=== PATIENT | female | born 2000 | race Hispanic/Latino ===

== ENCOUNTER 2025-06-23 14:40 | Emergency (ER) | payer OTHER ==
--- OUTSIDE RECORDS SUMMARY | 2025-06-23 14:50 | XMS REPORT | Continuity of Care Document ---
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 SARS-COV-2 COVID-19 PFIZER VACCINE 2021-01-04 00:00:00 Completed [facility] SARS-COV-2 COVID-19 PFIZER VACCINE 2021-01-04 00:00:00 Completed [facility] SARS-COV-2 COVID-19 PFIZER VACCINE 2021-01-04 00:00:00 Completed [facility] SARS-COV-2 COVID-19 PFIZER VACCINE 2021-01-04 00:00:00 Completed [facility] SARS-COV-2 COVID-19 PFIZER VACCINE 2021-01-04 00:00:00 Completed [facility] SARS-COV-2 COVID-19 PFIZER VACCINE 2021-01-04 00:00:00 Completed [facility] SARS-COV-2 COVID-19 PFIZER VACCINE 2021-01-04 00:00:00 Completed [facility] SARS-COV-2 COVID-19 PFIZER VACCINE 2021-01-04 00:00:00 Completed [facility] SARS-COV-2 COVID-19 PFIZER VACCINE 2021-01-04 00:00:00 Completed [facility] SARS-COV-2 COVID-19 PFIZER VACCINE 2021-01-04 00:00:00 Completed [facility] SARS-COV-2 COVID-19 PFIZER VACCINE 2021-01-04 00:00:00 Completed [facility] SARS-COV-2 COVID-19 PFIZER VACCINE 2021-01-04 00:00:00 Completed [facility] SARS-COV-2 COVID-19 PFIZER VACCINE 2021-01-04 00:00:00 Completed [facility] SARS-COV-2 COVID-19 PFIZER VACCINE 2021-01-04 00:00:00 Completed [facility] SARS-COV-2 COVID-19 PFIZER VACCINE 2021-01-04 00:00:00 Completed [facility] SARS-COV-2 COVID-19 PFIZER VACCINE 2021-01-04 00:00:00 Completed [facility] SARS-COV-2 COVID-19 PFIZER VACCINE 2021-01-04 00:00:00 Completed [facility] SARS-COV-2 COVID-19 PFIZER VACCINE 2021-01-04 00:00:00 Completed [facility] SARS-COV-2 COVID-19 PFIZER VACCINE 2021-01-04 00:00:00 Completed [facility] SARS-COV-2 COVID-19 PFIZER VACCINE 2021-01-04 00:00:00 Completed [facility] SARS-COV-2 COVID-19 PFIZER VACCINE 2021-01-04 00:00:00 Completed [facility] SARS-COV-2 COVID-19 PFIZER VACCINE 2021-01-04 00:00:00 Completed [facility] SARS-COV-2 COVID-19 PFIZER VACCINE 2021-01-04 00:00:00 Completed [facility] SARS-COV-2 COVID-19 PFIZER VACCINE 2021-01-04 00:00:00 Completed [facility] TD, NOS 2016-04-21 00:00:00 Completed [facility] TD, NOS 2016-04-21 00:00:00 Completed [facility] TD, NOS 2016-04-21 00:00:00 Completed [facility] TD, NOS 2016-04-21 00:00:00 Completed [facility] TD, NOS 2016-04-21 00:00:00 Completed [facility] TD, NOS 2016-04-21 00:00:00 Completed [facility] TD, NOS 2016-04-21 00:00:00 Completed [facility] TD, NOS 2016-04-21 00:00:00 Completed [facility] TD, NOS 2016-04-21 00:00:00 Completed [facility] TD, NOS 2016-04-21 00:00:00 Completed [facility] TD, NOS 2016-04-21 00:00:00 Completed [facility] TD, NOS 2016-04-21 00:00:00 Completed [facility] TD, NOS 2016-04-21 00:00:00 Completed [facility] TD, NOS 2016-04-21 00:00:00 Completed [facility] TD, NOS 2016-04-21 00:00:00 Completed [facility] TD, NOS 2016-04-21 00:00:00 Completed [facility] TD, NOS 2016-04-21 00:00:00 Completed [facility] TD, NOS 2016-04-21 00:00:00 Completed [facility] TD, NOS 2016-04-21 00:00:00 Completed [facility] TD, NOS 2016-04-21 00:00:00 Completed [facility] TD, NOS 2016-04-21 00:00:00 Completed [facility] TD, NOS 2016-04-21 00:00:00 Completed [facility] TD, NOS 2016-04-21 00:00:00 Completed [facility] TD, NOS 2016-04-21 00:00:00 Completed [facility] TD, NOS 2016-04-21 00:00:00 Completed [facility] TD, NOS 2016-04-21 00:00:00 Completed [facility] TD, NOS 2016-04-21 00:00:00 Completed [facility] TD, NOS 2016-04-21 00:00:00 Completed [facility] TD, NOS 2016-04-21 00:00:00 Completed [facility] TD, NOS 2016-04-21 00:00:00 Completed [facility] TD, NOS Unknown Completed [facility] SARS-COV-2 COVID-19 PFIZER VACCINE Unknown Completed [facility] TDAP Unknown Completed [facility] TD, NOS Unknown Completed [facility] SARS-COV-2 COVID-19 PFIZER VACCINE Unknown Completed [facility] TDAP Unknown Completed [facility] TD, NOS Unknown Completed [facility] SARS-COV-2 COVID-19 PFIZER VACCINE Unknown Completed [facility] TDAP Unknown Completed [facility] TD, NOS Unknown Completed [facility] SARS-COV-2 COVID-19 PFIZER VACCINE Unknown Completed [facility] TDAP Unknown Completed [facility] TD, NOS Unknown Completed [facility] SARS-COV-2 COVID-19 PFIZER VACCINE Unknown Completed [facility] TDAP Unknown Completed [facility] TD, NOS Unknown Completed [facility] SARS-COV-2 COVID-19 PFIZER VACCINE Unknown Completed [facility] TDAP Unknown Completed [facility] TD, NOS Unknown Completed [facility] SARS-COV-2 COVID-19 PFIZER VACCINE Unknown Completed [facility] TDAP Unknown Completed [facility] TD, NOS Unknown Completed [facility] SARS-COV-2 COVID-19 PFIZER VACCINE Unknown Completed [facility] TDAP Unknown Completed [facility] TD, NOS Unknown Completed [facility] SARS-COV-2 COVID-19 PFIZER VACCINE Unknown Completed [facility] TDAP Unknown Completed [facility] TD, NOS Unknown Completed [facility] SARS-COV-2 COVID-19 PFIZER VACCINE Unknown Completed [facility] TDAP Unknown Completed [facility] TD, NOS Unknown Completed [facility] SARS-COV-2 COVID-19 PFIZER VACCINE Unknown Completed [facility] TDAP Unknown Completed [facility] TD, NOS Unknown Completed [facility] SARS-COV-2 COVID-19 PFIZER VACCINE Unknown Completed [facility] TDAP Unknown Completed [facility] TD, NOS Unknown Completed [facility] SARS-COV-2 COVID-19 PFIZER VACCINE Unknown Completed [facility] TDAP Unknown Completed [facility] TD, NOS Unknown Completed [facility] SARS-COV-2 COVID-19 PFIZER VACCINE Unknown Completed [facility] TDAP Unknown Completed [facility] TD, NOS Unknown Completed [facility] SARS-COV-2 COVID-19 PFIZER VACCINE Unknown Completed [facility] TDAP Unknown Completed [facility] TD, NOS Unknown Completed [facility] SARS-COV-2 COVID-19 PFIZER VACCINE Unknown Completed [facility] TDAP Unknown Completed [facility] TD, NOS Unknown Completed [facility] SARS-COV-2 COVID-19 PFIZER VACCINE Unknown Completed [facility] TDAP Unknown Completed [facility] TD, NOS Unknown Completed [facility] SARS-COV-2 COVID-19 PFIZER VACCINE Unknown Completed [facility] TDAP Unknown Completed [facility] TD, NOS Unknown Completed [facility] SARS-COV-2 COVID-19 PFIZER VACCINE Unknown Completed [facility] TDAP Unknown Completed [facility] TD, NOS Unknown Completed [facility] SARS-COV-2 COVID-19 PFIZER VACCINE Unknown Completed [facility] TDAP Unknown Completed [facility] TD, NOS Unknown Completed [facility] SARS-COV-2 COVID-19 PFIZER VACCINE Unknown Completed [facility] TDAP Unknown Completed [facility] TD, NOS Unknown Completed [facility] SARS-COV-2 COVID-19 PFIZER VACCINE Unknown Completed [facility] TDAP Unknown Completed [facility] TD, NOS Unknown Completed [facility] SARS-COV-2 COVID-19 PFIZER VACCINE Unknown Completed [facility] TDAP Unknown Completed [facility] TD, NOS Unknown Completed [facility] SARS-COV-2 COVID-19 PFIZER VACCINE Unknown Completed [facility] TDAP Unknown Completed [facility] TD, NOS Unknown Completed [facility] SARS-COV-2 COVID-19 PFIZER VACCINE Unknown Completed [facility] TDAP Unknown Completed [facility] TD, NOS Unknown Completed [facility] SARS-COV-2 COVID-19 PFIZER VACCINE Unknown Completed [facility] TDAP Unknown Completed [facility] TD, NOS Unknown Completed [facility] SARS-COV-2 COVID-19 PFIZER VACCINE Unknown Completed [facility] TDAP Unknown Completed [facility] TD, NOS Unknown Completed [facility] SARS-COV-2 COVID-19 PFIZER VACCINE Unknown Completed [facility] TDAP Unknown Completed [facility] TD, NOS Unknown Completed [facility] SARS-COV-2 COVID-19 PFIZER VACCINE Unknown Completed [facility] TDAP Unknown Completed [facility] TD, NOS Unknown Completed [facility] SARS-COV-2 COVID-19 PFIZER VACCINE Unknown Completed [facility] TDAP Unknown Completed [facility] TD, NOS Unknown Completed [facility] SARS-COV-2 COVID-19 PFIZER VACCINE Unknown Completed [facility] TDAP Unknown Completed [facility] TD, NOS Unknown Completed [facility] SARS-COV-2 COVID-19 PFIZER VACCINE Unknown Completed [facility] TDAP Unknown Completed [facility] Vital Signs Vital Name Observation Time Observation Value Comments S ource Systolic blood pressure 2025-02-20 18:01:00 109 mm[Hg] [facility] Diastolic blood pressure 2025-02-20 18:01:00 66 mm[Hg] [facility] Heart rate 2025-02-20 18:01:00 74 /min [facility] Body temperature 2025-02-20 18:01:00 35.94 [facility] Body height 2025-02-20 18:01:00 144.8 cm [facility] Body weight 2025-02-20 18:01:00 43.364 kg [facility] BMI 2025-02-20 18:01:00 20.69 kg/m2 [facility] Systolic blood pressure 2025-01-19 16:10:00 110 mm[Hg] [facility] Diastolic blood pressure 2025-01-19 16:10:00 71 mm[Hg] [facility] Heart rate 2025-01-19 16:10:00 71 /min [facility] Body temperature 2025-01-19 16:10:00 36.78 [facility] Respiratory rate 2025-01-19 16:10:00 18 /min [facility] Body height 2025-01-19 16:10:00 144.8 cm [facility] Body weight 2025-01-19 16:10:00 43.681 kg [facility] BMI 2025-01-19 16:10:00 20.84 kg/m2 [facility] Oxygen saturation in Arterial blood by Pulse oximetry 2025-01-19 16:10:00 98 /min [facility] Systolic blood pressure 2025-01-01 20:02:00 110 mm[Hg] [facility] Diastolic blood pressure 2025-01-01 20:02:00 73 mm[Hg] [facility] Heart rate 2025-01-01 20:02:00 87 /min [facility] Respiratory rate 2025-01-01 20:02:00 18 /min [facility] Body height 2025-01-01 20:02:00 144.8 cm [facility] Body weight 2025-01-01 20:02:00 50.803 kg [facility] BMI 2025-01-01 20:02:00 24.24 kg/m2 [facility] Systolic blood pressure 2024-12-26 20:00:00 114 mm[Hg] [facility] Diastolic blood pressure 2024-12-26 20:00:00 79 mm[Hg] [facility] Heart rate 2024-12-26 20:00:00 94 /min [facility] Body temperature 2024-12-26 20:00:00 37 [facility] Respiratory rate 2024-12-26 20:00:00 18 /min [facility] Body height 2024-12-26 20:00:00 [facility].8 [facility] 2024-12-26 20:00:00 50.259 kg [facility] BMI 2024-12-26 20:00:00 23.98 kg/m2 [facility] Systolic blood pressure 2024-12-19 14:05:00 114 mm[Hg] [facility] Diastolic blood pressure 2024-12-19 14:05:00 77 mm[Hg] [facility] Heart rate 2024-12-19 14:05:00 78 /min [facility] Body temperature 2024-12-19 14:05:00 36.22 [facility] Respiratory rate 2024-12-19 14:05:00 18 /min [facility] Body height 2024-12-19 14:05:00 144.8 cm [facility] Body weight 2024-12-19 14:05:00 50.168 kg [facility] BMI 2024-12-19 14:05:00 23.93 kg/m2 [facility] Systolic blood pressure 2024-11-24 19:23:00 97 mm[Hg] [place] [facility] Diastolic blood pressure 2024-11-24 19:23:00 68 mm[Hg] [facility] Heart rate 2024-11-24 19:23:00 106 /min [facility] Body temperature 2024-11-24 19:23:00 36.11 [facility] Respiratory rate 2024-11-24 19:23:00 18 /min [facility] Body height 2024-11-24 19:23:00 144.8 cm [facility] 2024-11-24 19:23:00 49.17 kg [facility] BMI 2024-11-24 19:23:00 23.46 kg/m2 [facility] Heart rate 2024-11-22 18:15:00 92 /min [facility] Oxygen saturation in Arterial blood by Pulse oximetry 2024-11-22 18:15:00 100 /min [facility] Systolic blood pressure 2024-11-22 15:28:00 106 mm[Hg] [facility] Diastolic blood pressure 2024-11-22 15:28:00 74 mm[Hg] [facility] Body temperature 2024-11-22 15:28:00 36.78 [facility] Respiratory rate 2024-11-22 15:28:00 18 /min [facility] Body height 2024-11-22 15:09:00 144.8 cm [facility] Body weight 2024-11-22 15:09:00 48.036 kg [facility] BMI 2024-11-22 15:09:00 22.92 kg/m2 [facility] Systolic blood pressure 2024-11-10 18:54:00 113 mm[Hg] [facility] Diastolic blood pressure 2024-11-10 18:54:00 61 mm[Hg] [facility] Heart rate 2024-11-10 18:54:00 102 /min [facility] Body temperature 2024-11-10 18:54:00 36.39 [facility] Respiratory rate 2024-11-10 18:54:00 18 /min [facility] Body height 2024-11-10 18:54:00 144.8 cm [facility] Body weight 2024-11-10 18:54:00 48.081 kg [facility] BMI 2024-11-10 18:54:00 22.94 kg/m2 [facility] Systolic blood pressure 2024-10-27 16:50:00 106 mm[Hg] [facility] Diastolic blood pressure 2024-10-27 16:50:00 72 mm[Hg] [facility] Heart rate 2024-10-27 16:50:00 87 /min [facility] Body temperature 2024-10-27 16:50:00 35.94 [facility] Respiratory rate 2024-10-27 16:50:00 18 /min [facility] Body height 2024-10-27 16:50:00 144.8 cm [facility] 2024-10-27 16:50:00 48.081 kg [facility] BMI 2024-10-27 16:50:00 22.94 kg/m2 [facility] Systolic blood pressure 2024-09-29 21:59:00 106 mm[Hg] [place] [facility] Diastolic blood pressure 2024-09-29 21:59:00 66 mm[Hg] [facility] Heart rate 2024-09-29 21:59:00 96 /min [facility] Respiratory rate 2024-09-29 21:59:00 18 /min [facility] Body height 2024-09-29 21:59:00 144.8 cm [facility] Body weight 2024-09-29 21:59:00 45.813 kg [facility] BMI 2024-09-29 21:59:00 21.86 kg/m2 [facility] Systolic blood pressure 2024-08-29 21:04:00 104 mm[Hg] [facility] Diastolic blood pressure 2024-08-29 21:04:00 73 mm[Hg] [facility] Heart rate 2024-08-29 21:04:00 91 /min [facility] Body temperature 2024-08-29 21:04:00 36.44 [facility] Body height 2024-08-29 21:04:00 144.8 cm [facility] Body weight 2024-08-29 21:04:00 42.366 kg [facility] BMI 2024-08-29 21:04:00 20.21 kg/m2 [facility] Systolic blood pressure 2024-07-31 14:36:00 111 mm[Hg] [place] [facility] Diastolic blood pressure 2024-07-31 14:36:00 78 mm[Hg] [facility] Heart rate 2024-07-31 14:36:00 82 /min [facility] Body temperature 2024-07-31 14:36:00 36.06 [facility] Body height 2024-07-31 14:36:00 144.8 cm [facility] Body weight 2024-07-31 14:36:00 39.917 kg [facility] BMI 2024-07-31 14:36:00 19.04 kg/m2 [facility] Systolic blood pressure 2024-07-03 15:13:00 107 mm[Hg] [facility] Diastolic blood pressure 2024-07-03 15:13:00 79 mm[Hg] [facility] Heart rate 2024-07-03 15:13:00 95 /min [facility] Respiratory rate 2024-07-03 15:13:00 16 /min [facility] Body height 2024-07-03 15:13:00 144.8 cm [facility] Body weight 2024-07-03 15:13:00 39.463 kg [facility] BMI 2024-07-03 15:13:00 18.83 kg/m2 [facility] Systolic blood pressure 2024-06-15 02:31:00 111 mm[Hg] [facility] Diastolic blood pressure 2024-06-15 02:31:00 74 mm[Hg] [facility] Heart rate 2024-06-15 02:31:00 84 /min [facility] Body temperature 2024-06-15 02:31:00 36.89 [facility] Respiratory rate 2024-06-15 02:31:00 15 /min [facility] Oxygen saturation in Arterial blood by Pulse oximetry 2024-06-15 02:31:00 100 /min [facility] Body height 2024-06-15 00:47:00 144.8 cm [facility] Body weight 2024-06-15 00:47:00 38.783 kg [facility] BMI 2024-06-15 00:47:00 18.50 kg/m2 [facility] Systolic blood pressure 2024-05-30 08:11:00 98 mm[Hg] [facility] Diastolic blood pressure 2024-05-30 08:11:00 72 mm[Hg] [facility] Heart rate 2024-05-30 08:11:00 97 /min [facility] Body temperature 2024-05-30 08:11:00 36.78 [facility] Respiratory rate 2024-05-30 08:11:00 16 /min [facility] Oxygen saturation in Arterial blood by Pulse oximetry 2024-05-30 08:11:00 100 /min [facility] Body height 2024-05-30 04:26:00 142.2 cm [facility] Body weight 2024-05-30 04:23:00 38.556 kg [facility] BMI 2024-05-30 04:23:00 19.06 kg/m2 [facility] Systolic blood pressure 2023-12-07 15:08:00 122 mm[Hg] [facility] Diastolic blood pressure 2023-12-07 15:08:00 76 mm[Hg] [facility] Heart rate 2023-12-07 15:08:00 76 /min [facility] Body temperature 2023-12-07 15:08:00 36.61 [facility] Respiratory rate 2023-12-07 15:08:00 16 /min [facility] Body height 2023-12-07 15:08:00 144.8 cm [facility] Body weight 2023-12-07 15:08:00 41.549 kg [facility] BMI 2023-12-07 15:08:00 19.82 kg/m2 [facility] Oxygen saturation in Arterial blood by Pulse oximetry 2023-12-07 15:08:00 100 /min [facility] Systolic blood pressure 2023-10-19 16:23:00 112 mm[Hg] [facility] Diastolic blood pressure 2023-10-19 16:23:00 72 mm[Hg] [facility] Heart rate 2023-10-19 16:23:00 85 /min [facility] Body temperature 2023-10-19 16:23:00 36.61 [facility] Respiratory rate 2023-10-19 16:23:00 18 /min [facility] Body height 2023-10-19 16:23:00 149.9 cm [facility] Body weight 2023-10-19 16:23:00 44.543 kg [facility] BMI 2023-10-19 16:23:00 19.83 kg/m2 [facility] Systolic blood pressure 2023-09-17 18:59:00 121 mm[Hg] [facility] Diastolic blood pressure 2023-09-17 18:59:00 81 mm[Hg] [facility] Heart rate 2023-09-17 18:59:00 82 /min [facility] Body temperature 2023-09-17 18:59:00 36.78 [facility] Respiratory rate 2023-09-17 18:59:00 18 /min [facility] Body weight 2023-09-17 18:59:00 44.543 kg [facility] BMI 2023-09-17 18:59:00 22.02 kg/m2 [facility] Heart rate 2023-09-11 18:00:00 78 /min [facility] Body temperature 2023-09-11 18:00:00 36.33 [facility] Respiratory rate 2023-09-11 18:00:00 16 /min [facility] Oxygen saturation in Arterial blood by Pulse oximetry 2023-09-11 13:15:00 98 /min [facility] Systolic blood pressure 2023-09-11 09:15:00 110 mm[Hg] [facility] Diastolic blood pressure 2023-09-11 09:15:00 79 mm[Hg] [facility] Body weight 2023-09-10 06:31:00 52.436 kg [facility] BMI 2023-09-10 06:31:00 25.92 kg/m2 [facility] Respiratory rate 2023-09-10 18:49:00 13 /min [facility] Systolic blood pressure 2023-09-11 01:15:00 119 mm[Hg] [facility] [facility] Di[facility] blood pressure 2023-09-11 01:15:00 68 mm[Hg] [facility] Heart rate 2023-09-11 01:15:00 76 /min [facility] Body temperature 2023-09-11 01:15:00 36.78 [facility] Respiratory rate 2023-09-11 01:15:00 16 /min [facility] Oxygen saturation in Arterial blood by Pulse oximetry 2023-09-11 01:15:00 98 /min [facility] Body weight 2023-09-10 06:31:00 52.436 kg [facility] BMI 2023-09-10 06:31:00 25.92 kg/m2 Univ [facility] Heart rate 2023-09-04 20:15:00 77 /min [facility] Oxygen saturation in Arterial blood by Pulse oximetry 2023-09-04 20:15:00 100 /min [facility] Systolic blood pressure 2023-09-04 19:15:00 98 mm[Hg] [facility] Diastolic blood pressure 2023-09-04 19:15:00 58 mm[Hg] [facility] Body temperature 2023-09-04 18:41:00 36.78 [facility] Respiratory rate 2023-09-04 18:41:00 18 /min [facility] Body height 2023-09-04 18:10:00 142.2 cm [facility] Body weight 2023-09-04 18:10:00 53.025 kg [facility] BMI 2023-09-04 18:10:00 26.21 kg/m2 [facility] Systolic blood pressure 2023-09-03 17:33:00 105 mm[Hg] [facility] Diastolic blood pressure 2023-09-03 17:33:00 69 mm[Hg] [facility] Heart rate 2023-09-03 17:33:00 82 /min [facility] Body temperature 2023-09-03 17:33:00 36.56 [facility] Body height 2023-09-03 17:33:00 149.9 cm Univ [facility] Body weight 2023-09-03 17:33:00 52.436 kg Univ [facility] BMI 2023-09-03 17:33:00 23.35 kg/m2 [facility] Systolic blood pressure 2023-08-28 15:44:00 116 mm[Hg] [facility] Diastolic blood pressure 2023-08-28 15:44:00 79 mm[Hg] [facility] Heart rate 2023-08-28 15:44:00 75 /min [facility] Body temperature 2023-08-28 15:44:00 35.94 [facility] Respiratory rate 2023-08-28 15:44:00 17 /min [facility] Body height 2023-08-28 15:44:00 149.9 cm Univ [facility] Body weight 2023-08-28 15:44:00 53.252 kg [facility] BMI 2023-08-28 15:44:00 23.71 kg/m2 Univ [facility] Systolic blood pressure 2023-08-21 23:21:00 108 mm[Hg] [facility] Diastolic blood pressure 2023-08-21 23:21:00 69 mm[Hg] [facility] Heart rate 2023-08-21 23:21:00 69 /min [facility] Body temperature 2023-08-21 23:21:00 36.17 [facility] Respiratory rate 2023-08-21 23:21:00 18 /min [facility] Body height 2023-08-21 23:21:00 142.2 cm Univ [facility] Body weight 2023-08-21 23:21:00 53.252 kg [facility] BMI 2023-08-21 23:21:00 26.32 kg/m2 Univ [facility] Oxygen saturation in Arterial blood by Pulse oximetry 2023-08-21 23:21:00 98 /min [facility] Systolic blood pressure 2023-08-21 16:36:00 113 mm[Hg] [facility] Diastolic blood pressure 2023-08-21 16:36:00 77 mm[Hg] [facility] Heart rate 2023-08-21 16:36:00 74 /min [facility] Respiratory rate 2023-08-21 16:36:00 18 /min [facility] Body height 2023-08-21 16:36:00 142.2 cm [facility] Body weight 2023-08-21 16:36:00 52.799 kg [facility] BMI 2023-08-21 16:36:00 26.10 kg/m2 [facility] Oxygen saturation in Arterial blood by Pulse oximetry 2023-08-21 16:36:00 99 /min [facility] Heart rate 2023-08-15 06:45:00 83 [facility]terial blood by Pulse oximetry 2023-08-15 06:45:00 98 /min [facility] Systolic blood pressure 2023-08-15 05:25:00 110 mm[Hg] [facility] Diastolic blood pressure 2023-08-15 05:25:00 69 mm[Hg] [facility] Body temperature 2023-08-15 05:25:00 36.5 [facility] Respiratory rate 2023-08-15 05:25:00 16 /min [facility] Body height 2023-08-15 05:25:00 142.2 cm [facility] Body weight 2023-08-15 05:25:00 53.071 kg [facility] BMI 2023-08-15 05:25:00 26.23 kg/m2 [facility] Systolic blood pressure 2023-08-07 15:26:00 121 mm[Hg] [facility] Diastolic blood pressure 2023-08-07 15:26:00 79 mm[Hg] [facility] Heart rate 2023-08-07 15:26:00 82 /min [facility] Body temperature 2023-08-07 15:26:00 36.28 [facility] Respiratory rate 2023-08-07 15:26:00 17 /min [facility] Body height 2023-08-07 15:26:00 139.7 cm [facility] weight 2023-08-07 15:26:00 51.801 kg Univ [facility] BMI 2023-08-07 15:26:00 26.54 kg/m2 [facility] Body height 2023-07-23 21:04:00 139.7 cm [facility] Body weight 2023-07-23 21:04:00 49.896 kg Univ [facility] BMI 2023-07-23 21:04:00 25.57 kg/m2 [facility] Systolic blood pressure 2023-07-23 21:04:00 106 mm[Hg] [facility] Diastolic blood pressure 2023-07-23 21:04:00 66 mm[Hg] [facility] Heart rate 2023-07-23 21:04:00 88 /min [facility] Body temperature 2023-07-23 21:04:00 36.44 [facility] Respiratory rate 2023-07-23 21:04:00 18 /min [facility] Systolic blood pressure 2023-07-09 20:55:00 111 mm[Hg] [facility] Diastolic blood pressure 2023-07-09 20:55:00 71 mm[Hg] [facility] Heart rate 2023-07-09 20:55:00 91 /min [facility] Body temperature 2023-07-09 20:55:00 37.06 [facility] Body height 2023-07-09 20:55:00 139.7 cm [facility] Body weight 2023-07-09 20:55:00 49.805 kg [facility] BMI 2023-07-09 20:55:00 25.52 kg/m2 Univ [facility] Systolic blood pressure 2023-07-06 02:45:00 101 mm[Hg] [facility] Diastolic blood pressure 2023-07-06 02:45:00 63 mm[Hg] [facility] Heart rate 2023-07-06 02:45:00 87 /min [facility] Body temperature 2023-07-06 02:45:00 36.89 [facility] Respiratory rate 2023-07-06 02:45:00 18 /min [facility] Body height 2023-07-06 02:45:00 139.7 cm [facility] Oxygen saturation in Arterial blood by Pulse oximetry 2023-07-06 02:45:00 100 /min [facility] Body weight 2023-07-06 02:33:00 49.17 kg Univ [facility] BMI 2023-07-06 02:33:00 25.19 kg/m2 [facility] Systolic blood pressure 2023-06-25 21:01:00 102 mm[Hg] [facility] Diastolic blood pressure 2023-06-25 21:01:00 63 mm[Hg] [facility] Heart rate 2023-06-25 21:01:00 80 /min [facility] Body temperature 2023-06-25 21:01:00 36.5 [facility] Respiratory rate 2023-06-25 21:01:00 16 /min [facility] Body height 2023-06-25 21:01:00 137.2 cm [facility] Body weight 2023-06-25 21:01:00 47.991 kg [facility] BMI 2023-06-25 21:01:00 25.51 kg/m2 Univ [facility] Systolic blood pressure 2023-06-11 21:09:00 100 mm[Hg] [facility] Diastolic blood pressure 2023-06-11 21:09:00 63 mm[Hg] [facility] Heart rate 2023-06-11 21:09:00 89 /min [facility] Body temperature 2023-06-11 21:09:00 37.06 [facility] Respiratory rate 2023-06-11 21:09:00 18 /min [facility] Body height 2023-06-11 21:09:00 137.2 cm [facility] Body weight 2023-06-11 21:09:00 47.628 kg [facility] BMI 2023-06-11 21:09:00 25.32 kg/m2 [facility] blood pressure 2023-05-14 16:14:00 99 mm[Hg] [facility] Diastolic blood pressure 2023-05-14 16:14:00 68 mm[Hg] [facility] Heart rate 2023-05-14 16:14:00 82 /min [facility] Body temperature 2023-05-14 16:14:00 36.72 [facility] Respiratory rate 2023-05-14 16:14:00 18 /min [facility] Body height 2023-05-14 16:14:00 137.2 cm [facility] Body weight 2023-05-14 16:14:00 45.36 kg Univ [facility] BMI 2023-05-14 16:14:00 24.11 kg/m2 [facility] Systolic blood pressure 2023-04-19 13:59:00 96 mm[Hg] [facility] Diastolic blood pressure 2023-04-19 13:59:00 60 mm[Hg] [facility] Heart rate 2023-04-19 13:59:00 79 /min [facility] Body temperature 2023-04-19 13:59:00 36.17 [facility] Body height 2023-04-19 13:59:00 137.2 cm [facility] Body weight 2023-04-19 13:59:00 43.001 kg Univ [facility] BMI 2023-04-19 13:59:00 22.86 kg/m2 [facility] Systolic blood pressure 2023-04-10 15:12:00 93 mm[Hg] [facility] Diastolic blood pressure 2023-04-10 15:12:00 63 mm[Hg] [facility] Heart rate 2023-04-10 15:12:00 83 /min [facility] Body temperature 2023-04-10 15:12:00 36.89 [facility] Body height 2023-04-10 15:12:00 139.7 cm Univ [facility] Body weight 2023-04-10 15:12:00 42.366 kg [facility] BMI 2023-04-10 15:12:00 21.71 kg/m2 Univ [facility] Heart rate 2023-04-09 19:30:00 78 /min [facility] Oxygen saturation in Arterial blood by Pulse oximetry 2023-04-09 19:30:00 100 /min [facility] Systolic blood pressure 2023-04-09 17:30:00 116 mm[Hg] [facility] Diastolic blood pressure 2023-04-09 17:30:00 71 mm[Hg] [facility] Body temperature 2023-04-09 17:30:00 37 [facility] Respiratory rate 2023-04-09 17:30:00 16 /min [facility] Body weight 2023-04-09 17:30:00 42.185 kg [facility] BMI 2023-04-09 17:30:00 18.78 kg/m2 Univ [facility] Heart rate 2023-04-07 12:15:00 79 /min [facility] Oxygen saturation in Arterial blood by Pulse oximetry 2023-04-07 12:15:00 100 /min [facility] Systolic blood pressure 2023-04-07 12:10:00 115 mm[Hg] [facility] Diastolic blood pressure 2023-04-07 12:10:00 74 mm[Hg] [facility] Body temperature 2023-04-07 12:10:00 36.89 [facility] Respiratory rate 2023-04-07 12:10:00 16 /min [facility] Body height 2023-04-07 05:00:00 149.9 cm Univ [facility] Body weight 2023-04-07 05:00:00 41.731 kg Univ [facility] BMI 2023-04-07 05:00:00 18.58 kg/m2 Univ [facility] Systolic blood pressure 2023-03-27 18:29:00 109 mm[Hg] [facility] Diastolic blood pressure 2023-03-27 18:29:00 64 mm[Hg] [facility] Heart rate 2023-03-27 18:29:00 91 /min [facility] Body temperature 2023-03-27 18:29:00 36.56 [facility] Body height 2023-03-27 18:29:00 137.2 cm [facility] Body weight 2023-03-27 18:29:00 42.003 kg [facility] BMI 2023-03-27 18:29:00 22.33 kg/m2 [facility] Systolic blood pressure 2023-03-20 06:30:00 113 mm[Hg] [facility] Diastolic blood pressure 2023-03-20 06:30:00 73 mm[Hg] [facility] Heart rate 2023-03-20 06:30:00 77 /min [facility] Respiratory rate 2023-03-20 06:30:00 15 /min [facility] Oxygen saturation in Arterial blood by Pulse oximetry 2023-03-20 06:30:00 97 /min [facility] Body temperature 2023-03-20 02:40:00 37.11 [facility] Body height 2023-03-20 02:40:00 137.2 cm [facility] Body weight 2023-03-20 02:40:00 41.277 kg [facility] BMI 2023-03-20 02:40:00 21.94 kg/m2 [facility] Systolic blood pressure 2023-03-16 15:07:00 114 mm[Hg] [facility] Diastolic blood pressure 2023-03-16 15:07:00 72 mm[Hg] [facility] Heart rate 2023-03-16 15:07:00 80 /min [facility] Body temperature 2023-03-16 15:07:00 36.83 [facility] Body height 2023-03-16 15:07:00 140.2 cm [facility] Body weight 2023-03-16 15:07:00 41.64 kg [facility] BMI 2023-03-16 15:07:00 21.18 kg/m2 [facility] Systolic blood pressure 2022-12-18 05:11:00 110 mm[Hg] [facility] Diastolic blood pressure 2022-12-18 05:11:00 69 mm[Hg] [facility] Heart rate 2022-12-18 05:11:00 85 /min [facility] Respiratory rate 2022-12-18 05:11:00 16 /min [facility] Oxygen saturation in Arterial blood by Pulse oximetry 2022-12-18 05:11:00 100 /min [facility] Body temperature 2022-12-18 02:21:00 37 [facility] Body height 2022-12-18 02:21:00 149.9 cm [facility] Body weight 2022-12-18 02:21:00 43.092 kg [facility] BMI 2022-12-18 02:21:00 19.19 kg/m2 [facility] Procedures Procedure Date / Time Performed Performing Clinician Source POCT URINALYSIS W/O SPECIFIC GRAVITY 2025-01-01 00:00:00 Rosangela [facility] DSU PRE-OP 2024-12-26 21:59:26 Doctor Unass igned, [facility] POCT URINALYSIS W/O SPECIFIC GRAVITY 2024-12-26 00:00:00 Rosangela [facility] POCT URINALYSIS W/O SPECIFIC GRAVITY 2024-12-19 00:00:00 Rosangela [facility] POCT URINALYSIS W/O SPECIFIC GRAVITY 2024-11-24 00:00:00 FlorPulido, [facility] URINALYSIS 2024-11-22 16:25:00 Rosangela [facility] ADC ONLY - FERN TEST 2024-11-22 16:25:00 Rosangela [facility] POCT URINALYSIS W/O SPECIFIC GRAVITY 2024-11-10 18:55:00 Rosangela [facility] 1 HR GLUCOSE TOLERANCE TEST 2024-10-30 15:23:00 Rosangela [facility] GLUCOSE FASTING 2024-10-30 14:25:00 Rosangela [facility] GLUCOSE 1 HOUR POST PRANDIAL 2024-10-28 17:08:00 Rosangela [facility] TDAP VACCINE, >11 YRS, IM 2024-10-27 17:09:43 VeronicaAshok [facility] POCT URINALYSIS W/O SPECIFIC GRAVITY 2024-10-27 00:00:00 FlorPulido, [facility] POCT URINALYSIS W/O SPECIFIC GRAVITY 2024-09-29 00:00:00 Rosangela [facility] SECOND AND THIRD TRIMESTER ULTRASOUND 2024-09-09 20:53:00 MartinAshok [facility] POCT URINALYSIS W/O SPECIFIC GRAVITY 2024-08-29 00:00:00 FlorPulido, [facility] POCT URINALYSIS W/O SPECIFIC GRAVITY 2024-07-31 00:00:00 [facility] SCANNED LAB RESULTS 2024-07-11 18:57:21 Doctor Esther morales, [facility] POCT URINALYSIS W/O SPECIFIC GRAVITY 2024-07-03 00:00:00 MartinChintan [facility] INFLUENZA A/B RSV COVID NAAT 2024-06-15 00:51:00 Caden Hidalgo [facility] FIRST TRIMESTER LESS THAN 14 WEEKS 2024-05-30 06:42:12 Daniel Zimmer [facility] POCT TEST 2024-05-30 05:10:00 Mateo Zimmer [facility] TEST, SERUM 2024-05-30 05:07:00 Minerva Zimmer [facility] TOTAL BETA HCG ASSAY 2024-05-30 05:07:00 Yuriy Liriano i [facility] BASIC METABOLIC PANEL (NA, K, CL, CO2, GLUCOSE, BUN, CREATININE, CA) 2024-05-30 05:06:00 Daniel Zimmer [facility] CBC WITH DIFF 2024-05-30 05:06:00 Daniel Zimmer [facility] URINALYSIS 2024-05-30 05:06:00 Daniel Zimmer [facility] HB ABO GROUPING 2024-05-30 05:06:00 Daniel Zimmer [facility] CONSENT/REFUSAL FOR DIAGNOSIS AND TREATMENT 2023-12-07 14:43:06 Doctor Unassigned, [facility] CBC WITH DIFF 2023-09-11 09:28:00 Veronica-Brea Pulido [facility] CBC WITH DIFF 2023-09-11 09:28:00 Brea Adames [facility] CENTRAL NEURAXIAL BLOCK 2023-09-10 18:14:00 Deandre Lowe [facility] CENTRAL NEURAXIAL BLOCK 2023-09-10 14:52:00 Bobby Nur [facility] HB ABO GROUPING 2023-09-10 06:57:00 Veronica-Vivienne Pulido [facility] RHO (D) IMMUNE GLOBULIN 2023-09-10 06:57:00 Veronica-Niharika henry [facility] HB ABO GROUPING 2023-09-10 06:57:00 Martin-Ashok [facility] RHO (D) IMMUNE GLOBULIN 2023-09-10 06:57:00 Arsalan henry [facility] HOSPITAL ADMISSION 2023-09-09 06:01:00 Doctor Un assigned, [facility] ASSIGNMENT OF BENEFITS 2023-09-07 19:50:17 Docto r Unassigned, [facility] ASSIGNMENT OF BENEFITS 2023-09-07 19:50:17 Docto r Unassigned, [facility] CONSENT/REFUSAL FOR DIAGNOSIS AND TREATMENT 2023-09-07 19:49:53 Doctor Unassigned, [facility] CONSENT/REFUSAL FOR DIAGNOSIS AND TREATMENT 2023-09-07 19:49:53 Doctor Unassigned, [facility] CONSENT/REFUSAL FOR DIAGNOSIS AND TREATMENT 2023-09-04 18:01:23 Doctor Unassigned, [facility] PHYSICIAN ORDERS 2023-09-03 06:01:00 Doctor Unas signed, [facility] POCT URINALYSIS W/O SPECIFIC GRAVITY 2023-09-03 [facility] W/O SPECIFIC GRAVITY 2023-08-28 00:00:00 FlorPulido, [facility] XR ANKLE 3+ VW RIGHT 2023-08-21 23:40:00 Bird Godinez rly [facility] XR FOOT 3+ VW RIGHT 2023-08-21 23:39:51 Anjelica Godinez [facility] POCT URINALYSIS W/O SPECIFIC GRAVITY 2023-08-21 00:00:00 Martin[place] [facility] ASSIGNMENT OF BENEFITS 2023-08-15 05:03:11 Docto r Unassigned, [facility] CONSENT/REFUSAL FOR DIAGNOSIS AND TREATMENT 2023-08-15 05:01:49 Doctor Unassigned, [facility] POCT URINALYSIS W/O SPECIFIC GRAVITY 2023-08-07 00:00:00 Rosangela [facility] SECOND AND THIRD TRIMESTER ULTRASOUND 2023-07-25 19:57:00 FlorPulido, [facility] POCT URINALYSIS W/O SPECIFIC GRAVITY 2023-07-23 00:00:00 FlorPulido, [facility] POCT URINALYSIS W/O SPECIFIC GRAVITY 2023-07-09 00:00:00 Martin-Pulido, [facility] URINALYSIS 2023-07-06 03:59:00 Lynette Terrell [facility] ASSIGNMENT OF BENEFITS 2023-07-06 02:25:22 Docto r Unassigned, [facility] CONSENT/REFUSAL FOR DIAGNOSIS AND TREATMENT 2023-07-06 02:22:14 Doctor Unassigned, [facility] TDAP VACCINE, >11 YRS, IM 2023-06-25 21:15:48 FlorPulido, [facility] POCT URINALYSIS W/O SPECIFIC GRAVITY 2023-06-25 00:00:00 Rosangela [facility] 1 HR GLUCOSE TOLERANCE TEST 2023-06-12 [facility]-12 19:32:00 VeronicaAshok [facility] CBC WITH DIFF 2023-06-12 17:59:00 [facility] 2023-06-12 17:59:00 MartinAshok [facility] HIV 1/2 AG-AB WITH REFLEX 2023-06-12 17:59:00 [facility] POCT URINALYSIS W/O SPECIFIC GRAVITY 2023-06-11 00:00:00 FlorPulido, [facility] SECOND AND THIRD TRIMESTER ULTRASOUND 2023-05-15 14:19:00 [facility] POCT URINALYSIS W/O SPECIFIC GRAVITY 2023-05-14 00:00:00 [facility] PATIENT QUESTIONNAIRE 2023-04-19 05:01:00 Doctor Unassigned, [facility] ADC ONLY - FERN TEST 2023-04-09 18:50:00 [facility] CONSENT/REFUSAL FOR DIAGNOSIS AND TREATMENT 2023-04-09 17:03:47 Doctor Unassigned, [facility] US PELVIS > 14 WEEKS 2023-04-07 14:59:29 Vivienne Adamessol [facility] ADC CLC OR LCC ONLY - WET PREP 2023-04-07 05:34:00 Rosangela [facility] EXTERNAL PROVIDER RECORDS 2023-03-27 05:01:00 Doctor Unassigned, [facility] URINALYSIS 2023-03-20 02:57:00 Kizzy Davalos [facility] TOTAL BETA HCG ASSAY 2023-03-20 02:52:00 Fernanda Davalos [facility] CBC WITH DIFF 2023-03-20 02:52:00 Kizzy Davalos [facility] ASSIGNMENT OF BENEFITS 2023-03-20 02:34:55 Docto r Unassigned, [facility] NOTICE OF PRIVACY PRACTICES 2023-03-20 02:34:06 Doctor Unassigned, [facility] CONSENT/REFUSAL FOR DIAGNOSIS AND TREATMENT 2023-03-20 02:33:47 Doctor Unassigned, [facility] URINE DRUG (IMMUNOASSAY) - COMPREHENSIVE DRUG SCREEN 2023-03-16 16:04:00 Adum, Kira Dick [facility] ASSIGNMENT OF BENEFITS 2023-03-16 14:49:43 Docto r Unassigned, [facility] POCT TEST 2023-03-16 00:00:00 Adum, Kira Dick [facility] POCT URINALYSIS W/O SPECIFIC GRAVITY 2023-03-16 00:00:00 Adum, Kira Dick [facility] XR SPINE THORACIC 2 VW 2022-12-18 03:43:39 Denae Dyer [facility] XR CHEST 1 VW 2022-12-18 03:42:28 Anjelica Dyer [facility] POCT TEST 2022-12-18 03:17:00 Kunal Dyer [facility] URINALYSIS 2022-12-18 02:53:00 Anjelica Dyer [facility] CONSENT/REFUSAL FOR DIAGNOSIS AND TREATMENT 2022-12-18 02:16:50 Doctor Unassigned, [facility] SECTION Martin-PulidoVivienne henrysol [facility] Martin-Vivienne [facility]ol [facility] En[facility] Start Date/Time End Date/Time Encounter Type Admission Type Attending [facility] Care Facility Care Department Encounter ID Source 2024-11-22 12:40:17 Outpatient X [facility] DAHLIA [id number] [facility] 2023-08-15 02:40:33 Outpatient X [facility] DAHLIA [id number] [facility] 2023-07-06 00:22:26 Outpatient X [facility] DAHLIA [id number] [facility] 2026-02-26 15:30:00 2026-02-26 15:30:00 Outpatient R MARTIN-ASAEL S, [facility] [id number] [facility] 2025-02-20 13:00:00 2025-02-20 13:15:00 Routine Visit Martin-Asael s, [facility] 1..[id number] [facility] 2025-02-20 13:00:00 2025-02-20 13:00:00 Outpatient R MARTIN-ASAEL S, NIRMALA MARTIN-ASAEL S, [facility] [id number] [facility] 2025-01-19 11:00:00 2025-01-19 11:26:02 Outpatient R [facility] [id number] [facility] 2025-01-19 11:00:00 2025-01-19 11:26:02 Routine Visit Tru Wagoner [facility] 1..[id number] [facility] 2025-01-13 15:30:00 2025-01-13 15:30:00 Outpatient R MARTIN-ASAEL S, NIRMALA MARTIN-ASAEL S, [facility] [id number] [facility] 2025-01-08 21:44:00 2025-01-10 13:40:00 Inpatient P ADUM, KIRA ADUM, KIRA [facility] DAHLIA [id number] [facility] 2025-01-06 14:30:00 2025-01-06 15:27:18 Outpatient R MARTIN-ASAEL S, NIRMALA MARTIN-ASAEL S, [facility] [id number] [facility] 2025-01-01 14:15:00 2025-01-01 14:25:47 Outpatient R MARTIN-ASAEL S, NIRMALA MARTIN-ASAEL S, [facility] [id number] [facility] 2025-01-01 14:15:00 2025-01-01 14:25:47 Routine Visit Martin-Asael s, Nirmala [facility] 1.840.114 350.1.13.10 4.2.7.2.686 [id number] [facility] 2025-01-01 11:15:00 2025-01-01 11:15:00 Outpatient R MARTIN-ASAEL S, NIRMALA MARTIN-ASAEL S, [facility] [id number] [facility] 2024-12-26 00:00:00 2024-12-27 02:03:55 Orders Only Doctor Unassigned, Ponderosa Doctor Unassigned, Ponderosa [facility] 1..840.114 350.1.13.10 4.2.7.2.686 [id number] [id number] [facility] 2024-12-26 14:15:00 2024-12-26 14:30:00 Piano Case Maker Visit 2, Adc Lab Martin-Asael s, Nirmala 2, Adc Lab [facility] 1.2.840.114 350.1.13.10 4.2.7.2.686 [id number] [facility] 2024-12-26 14:15:00 2024-12-26 14:15:00 Outpatient R MARTIN-ASAEL S, NIRMALA MARTIN-ASAEL S, [facility] [id number] [facility] 2024-12-26 13:45:00 2024-12-26 14:13:04 Routine Visit Martin-Asael s, Nirmala [facility] 1.2.840.114 350.1.13.10 4.2.7.2.686 [id number] 134 [id number] [facility] 2024-12-19 08:00:00 2024-12-19 08:13:25 Outpatient R MARTIN-ASAEL S, NIRMALA MARTIN-ASAEL S, [facility] [id number] [facility] 2024-12-19 08:00:00 2024-12-19 08:13:25 Routine Visit Martin-Asael s, Nirmala [facility] 1.2.840.114 350.1.13.10 4.2.7.2.686 [id number] 134 [id number] [facility] 2024-07-11 00:00:00 2024-12-13 06:58:58 Orders Only Doctor Unassigned, Ponderosa Doctor Unassigned, Ponderosa [facility] 1.2.840.114 350.1.13.10 4.2.7.2.686 [id number] 134 [id number] [facility] 2024-12-08 16:15:00 2024-12-08 16:15:00 Outpatient R MARTIN-ASAEL S, NIRMALA MARTIN-ASAEL S, [facility] [id number] [facility] 2024-10-30 00:00:00 2024-12-06 18:22:34 Patient Secure Msg Doctor Unassigned, [place]onderosa Doctor Unassigned, Ponderosa [facility] 1.2.840.114 350.1.13.10 4.2.7.2.686 [id number] [facility] 2024-11-24 13:00:00 2024-11-24 13:29:25 Outpatient R MARTIN-ASAEL S, NIRMALA MARTIN-ASAEL S, NIRMALA [facility] [id number] [facility] 2024-11-24 13:00:00 2024-11-24 13:29:25 Routine Visit Martin-Asael s, Nirmala [facility] 1.2.840.114 350.1.13.10 4.2.7.2.686 [id number] [facility] 2024-11-22 09:12:00 2024-11-22 12:40:00 Outpatient X MARTIN-ASAEL S, NIRMALA MARTIN-ASAEL S, NIRMALA [facility] [id number] [facility] 2024-11-22 09:12:00 2024-11-22 12:40:00 Emergency Martin-Asael s, Nirmala [facility] 1.2.840.114 350.1.13.10 4.2.7.2.686 [id number] [id number] [facility] 2024-11-10 13:00:00 2024-11-10 13:02:25 Outpatient R MARTIN-ASAEL S, NIRMALA MARTIN-ASAEL S, NIRMALA [facility] [id number] [facility] 2024-11-10 13:00:00 2024-11-10 13:02:25 Routine Visit Martin-Asael s, Nirmala [facility] 1.2840.114 350.1.13.10 4.2.7.2.686 [id number] 134 [id number] [facility] 2024-10-30 08:15:00 2024-10-30 08:30:00 Piano Case Maker Visit 2, Adc Lab Martin-Asael s, Nirmala 2, Adc Lab [facility] 1.2.840.114 350.1.13.10 4.2.7.2.686 [id number] [facility] 2024-10-30 08:15:00 2024-10-30 08:15:00 Outpatient R MARTIN-ASAEL S, NIRMALA MARTIN-ASAEL S, [facility] [id number] [facility] 2024-10-28 10:00:00 2024-10-28 11:19:08 Piano Case Maker Visit 2, Adc Lab Martin-Asael s, Nirmala 2, [facility] Lab [facility] BUILD[facility] 1.2.840.114 350.1.13.10 4.2.7.2.686 [id number] [facility] 2024-10-28 10:00:00 2024-10-28 10:00:00 Outpatient R MARTIN-ASAEL S, NIRMALA MARTIN-ASAEL S, [facility] [id number] [facility] 2024-10-28 09:30:00 2024-10-28 09:30:00 Outpatient R MARTIN-ASAEL S, NIRMALA MARTIN-ASAEL S, [facility] [id number] [facility] 2024-10-27 11:15:00 2024-10-27 11:15:00 Routine Visit Martin-Asael s, Nirmala [facility] BU[facility] 1.2.840.114 350.1.13.10 4.2.7.2.686 [id number] 134 [id number] [facility] 2024-10-27 11:15:00 2024-10-27 11:09:34 Outpatient R MARTIN-ASAEL S, NIRMALA MARTIN-ASAEL S, [facility] [id number] [facility] 2024-10-13 10:00:00 2024-10-13 10:15:00 Piano Case Maker Visit 2, Adc Lab Martin-Asael s, Nirmala 2, [facility] 1..840.114 350.1.13.10 4.2.7.2.686 [id number] [facility] 2024-10-13 10:00:00 2024-10-13 10:00:00 Outpatient R MARTIN-ASAEL S, NIRMALA MARTIN-ASAEL S, [facility] [id number] [facility] 2024-09-29 16:15:00 2024-09-29 16:22:33 Outpatient R MARTIN-ASAEL S, NIRMALA MARTIN-ASAEL S, [facility] [id number] [facility] 2024-09-29 16:15:00 2024-09-29 16:22:33 Routine Visit Martin-Asael s, Nirmala [facility] 1..840.114 350.1.13.10 4.2.7.2.686 [id number] 134 [id number] [facility] 2024-09-09 14:15:00 2024-09-09 15:18:05 Outpatient P [facility] [id number] [facility] 2024-09-09 14:15:00 2024-09-09 15:18:05 Piano Case Maker Visit Ultrasound, Ritesh-[place] [facility] PHOTO LAB MANAGER [facility] 1..840.114 350.1.13.10 4.2.7.2.686 [id number] [facility] 2024-08-29 16:15:00 2024-08-29 16:24:53 Outpatient R MARTIN-ASAEL S, NIRMALA MARTIN-ASAEL S, [facility] [id number] [facility] 2024-08-29 16:15:00 2024-08-29 16:24:53 Routine Visit Martin-Asael s, Nirmala [facility] 1.2.840.114 350.1.13.10 4.2.7.2.686 [id number] 134 [id number] [facility] 2024-08-02 00:00:00 2024-08-02 07:49:41 Case Management Martin-Asael s, Nirmala [facility] 1.2.840.114 350.1.13.10 4.2.7.2.686 [id number] 134 [id number] [facility] 2024-08-01 10:30:00 2024-08-01 10:45:00 Piano Case Maker Visit 2, Adc Lab Martin-Asael s, Nirmala 2, Adc Lab [facility] NAL BUILDING 1.2.840.114 350.1.13.10 4.2.7.2.686 [id number] [facility] 2024-08-01 10:30:00 2024-08-01 10:37:36 Outpatient R MARTIN-ASAEL S, NIRMALA MARTIN-ASAEL S, [facility] [id number] [facility] 2024-07-31 09:45:00 2024-07-31 09:50:29 Outpatient R MARTIN-ASAEL S, NIRMALA MARTIN-ASAEL S, [facility] [id number] [facility] 2024-07-31 09:45:00 2024-07-31 09:50:29 Routine Visit Martin-Asael s, Nirmala [facility] 1.2.840.114 350.1.13.10 4.2.7.2.686 [id number] 134 [id number] [facility] 2024-07-10 00:00:00 2024-07-11 08:35:53 Patient Secure Msg Doctor Unassigned, [place] Doctor Unassigned, Ponderosa [facility] 1.2.840.114 350.1.13.10 4.2.7.2.686 [id number] 134 [id number] [facility] 2024-07-10 00:00:00 2024-07-10 10:04:38 Telephone Vivienne Spiveysol [facility] 1.2.840.114 350.1.13.10 4.2.7.2.686 [id number] 134 [id number] [facility] 2024-07-03 10:45:00 2024-07-03 11:00:00 Piano Case Maker Visit 2, Adc Lab Martin-Asael sVivienneNirmala 2, Adc Lab [facility] 1.2.840.114 350.1.13.10 4.2.7.2.686 [id number] [facility] 2024-07-03 10:00:00 2024-07-03 10:31:14 Outpatient R VERONICA-ASAEL S, NIRMALA VERONICA-ASAEL S [facility] [id number] [facility] 2024-07-03 10:00:00 2024-07-03 10:31:14 Initial Visit Ginette s Nirmala [facility] 1.2.840.114 350.1.13.10 4.2.7.2.686 [id number] [facility] 2024-06-14 19:50:00 2024-06-14 21:34:00 Emergency X CADEN HIDALGO [facility] [id number] [facility] 2024-06-14 19:50:00 2024-06-14 21:34:00 Emergency Caden Hidalgo [facility] 1.0.114 350.1.13.10 4.2.7.2.686 [id number] [id number] [facility] 2024-05-29 23:31:00 2024-05-30 03:14:00 Emergency X YENI LIRIANOINGRIDNOAHYENI [facility] ERT [id number] [facility] 2024-05-29 23:31:00 2024-05-30 03:14:00 Emergency Daniel Zimmer Yeni [facility] 1..114 350.1.13.10 4.2.7.2.686 [id number] [id number] [facility] 2023-12-07 09:10:00 2023-12-07 09:55:00 Emergency X CHANELLE CARVALHO [facility] ERT [id number] [facility] 2023-12-07 09:10:00 2023-12-07 09:55:00 Emergency Chanelle Carvalho [facility] ..114 350.1.13.10 4.2.7.2.686 [id number] [id number] [facility] 2023-10-19 10:30:00 2023-10-19 11:15:28 Outpatient R NIRMALA SPIVEY [facility] [id number] [facility] 2023-10-19 10:30:00 2023-10-19 10:45:00 Routine Visit Nirmala [facility] 1..114 350.1.13.10 4.2.7.2.686 [id number] 134 [id number] [facility] 2023-09-17 13:00:00 2023-09-17 13:15:00 Routine Visit Martin-Asael s, Nirmala [facility] 1.2.840.114 350.1.13.10 4.2.7.2.686 [id number] 134 [id number] [facility] 2023-09-17 13:00:00 2023-09-17 13:00:00 Outpatient R MARTIN-ASAEL S, NIRMALA MARTIN-ASAEL S, NIRMALA [facility] [id number] [facility] 2023-09-12 00:00:00 2023-09-12 00:00:00 Patient Secure Msg Martin-Asael s, Nirmala [facility] 1.2.840.114 350.1.13.10 4.2.7.2.686 [id number] 134 [id number] [facility] 2023-09-09 23:53:00 2023-09-11 16:00:00 Inpatient P MARITN-ASAEL S, NIRMALA MARTIN-ASAEL S, NIRMALA [facility] [id number] [facility] 2023-09-09 23:53:00 2023-09-11 16:00:00 Hospital Encounter Martin-Asael s, Nirmala [facility] 1.2.840.114 350.1.13.10 4.2.7.2.686 [id number] [id number] [facility] 2023-09-10 08:30:00 2023-09-10 12:56:00 Anesthesia Event Sandhya Hart Fernando [facility] 1.2.840.114 350.1.13.10 4.2.7.2.686 [id number] [id number] [facility] 2023-09-10 00:00:00 2023-09-10 00:00:00 Surgery Martin-Asael s, Nirmala [facility] 1.2840.114 350.1.13.10 4.2.7.2.686 [id number] [id number] [facility] 2023-09-09 00:00:00 2023-09-09 00:00:00 Orders Only Doctor Unassigned, Ponderosa [facility] 1.2840.114 350.1.13.10 4.2.7.2.686 [id number] [id number] [facility] 2023-09-07 14:00:00 2023-09-07 14:15:00 Piano Case Maker Visit Pob, Adc Lab Main Martin-Asael s, Nirmala [facility] 1.2840.114 350.1.13.10 4.2.7.2.686 [id number] [facility] 2023-09-07 14:00:00 2023-09-07 14:00:00 Outpatient R MARTIN-ASAEL S, NIRMALA MARTIN-ASAEL S, [facility] [id number] [facility] 2023-09-04 12:26:00 2023-09-04 14:55:00 Outpatient X MARTIN-ASAEL S, NIRMALA MARTIN-ASAEL S, NIRMALA [facility] [id number] [facility] 2023-09-04 12:26:00 2023-09-04 14:55:00 Emergency Adum, Kira L Martin-Asael s, Nirmala [facility] 1.2840.114 350.1.13.10 4.2.7.2.686 [id number] [id number] [facility] 2023-09-04 00:00:00 2023-09-04 00:00:00 Patient Secure Msg Martin-Asael s, Nirmala [facility] NAL BUILD[facility] 1.2840.114 350.1.13.10 4.2.7.2.686 [id number] 134 [id number] [facility] 2023-09-04 00:00:00 2023-09-04 00:00:00 Telephone Arsalani Vivienne castrosol [facility] 1.2.840.114 350.1.13.10 4.2.7.2.686 [id number] 134 [id number] [facility] 2023-09-03 11:30:00 2023-09-03 11:49:23 Outpatient R MARTIN-ASAEL S, NIRMALA MARTIN-ASAEL S, [facility] [id number] [facility] 2023-09-03 11:30:00 2023-09-03 11:49:23 Routine [facility] 1.2.840.114 350.1.13.10 4.2.7.2.686 [id number] 134 [id number] [facility] 2023-09-03 00:00:00 2023-09-03 00:00:00 Orders Only Doctor Unassigned, Ponderosa [facility] 1.2.840.114 350.1.13.10 4.2.7.2.686 [id number] [facility] 2023-08-28 10:30:00 2023-08-28 11:04:19 Outpatient R MARTIN-ASAEL S, NIRMALA MARTIN-ASAEL S, [facility] [id number] [facility] 2023-08-28 10:30:00 2023-08-28 11:04:19 Routine Visit Martin-Asael sVivienneNirmala [facility] 1.2.840.114 350.1.13.10 4.2.7.2.686 [id number] 134 [id number] [facility] 2023-08-22 00:00:00 2023-08-22 00:00:00 Patient Secure Msg Doctor Unassigned, Ponderosa [facility] 1.2.840.114 350.1.13.10 4.2.7.2.686 [id number] 134 [id number] [facility] 2023-08-21 18:33:30 2023-08-21 23:59:00 Outpatient [facility] [id number] [facility] 2023-08-21 18:33:30 2023-08-21 23:59:00 Hospital Encounter Carol Godinez [facility] 1.2.840.114 350.1.13.10 4.2.7.2.686 [id number] [facility] 2023-08-21 18:20:00 2023-08-21 19:04:45 Urgent Care Carol Godinez Ginette castro [facility] MEDICAL OFFICE BUILD[facility] 1..840.114 350.1.13.10 4.2.7.2.686 [id number] [facility] 2023-08-21 18:13:38 2023-08-21 18:32:00 Hospital Encounter Carol Godinez [facility] MEDICAL OFFICE BUILDING 1.2.840.114 350.1.13.10 4.2.7.2.686 [id number] [facility] 2023-08-21 11:30:00 2023-08-21 12:03:16 Routine Visit Nirmala Spivey [facility] PROFESSIO NAL BUILDING 1.2.840.114 350.1.13.10 4.2.7.2.686 [id number] 134 [id number] [facility] 2023-08-15 00:13:00 2023-08-15 02:35:00 Outpatient X KIRA RESENDEZ [facility] DAHLIA [id number] [facility] 2023-08-15 00:13:00 2023-08-15 02:35:00 Emergency Adum, Kira Dick [facility] 1.2.840.114 350.1.13.10 4.2.7.2.686 [id number] [id number] [facility] 2023-08-15 00:00:00 2023-08-15 00:00:00 Orders Only Doctor Unassigned, Ponderosa [facility] 1.2.840.114 350.1.13.10 4.2.7.2.686 [id number] [facility] 2023-08-07 10:30:00 2023-08-07 10:48:02 Outpatient R GINETTE Castro, NIRMALA GINETTE S [facility] [id number] [facility] 2023-08-07 10:30:00 2023-08-07 10:48:02 Routine Visit Ginette castro Nirmala [facility] 1.2.840.114 350.1.13.10 4.2.7.2.686 [id number] 134 [id number] [facility] 2023-07-30 00:00:00 2023-07-30 00:00:00 Telephone Ginette castro Nirmala [facility] BUILD[facility] 1.2.840.114 350.1.13.10 4.2.7.2.686 [id number] 134 [id number] [facility] 2023-07-25 15:15:00 2023-07-25 15:15:00 Piano Case Maker Visit 2, [facility] Room Shawnee Hauser [facility] PHOTO LAB MANAGER [facility] 1.2.840.114 350.1.13.10 4.2.7.2.686 [id number] [facility] 2023-07-25 15:15:00 2023-07-25 14:56:59 Outpatient P SHAWNEE HAUSER [facility] [id number] [facility] 2023-07-23 16:00:00 2023-07-23 16:22:47 Outpatient R MARTIN-ASAEL S, NIRMALA MARTIN-ASAEL S, [facility] [id number] [facility] 2023-07-23 16:00:00 2023-07-23 16:22:47 Routine Visit Martin-Asael s, Nirmala [facility] 1.2.840.114 350.1.13.10 4.2.7.2.686 [id number] [facility] 2023-07-09 16:00:00 2023-07-09 16:12:51 Outpatient R MARTIN-ASAEL S, NIRMALA MARTIN-ASAEL S, [facility] [id number] [facility] 2023-07-09 16:00:00 2023-07-09 16:12:51 Routine Visit Martin-Asael s, Nirmala [facility] 1.2.840.114 350.1.13.10 4.2.7.2.686 [id number] 134 [id number] [facility] 2023-07-05 21:35:00 2023-07-05 23:07:00 Outpatient X LYNETTE TERRELL [facility] [id number] [facility] 2023-07-05 21:35:00 2023-07-05 23:07:00 Emergency Lynette Terrell [facility] 1.2.840.114 350.1.13.10 4.2.7.2.686 [id number] [id number] [facility] 2023-07-05 00:00:00 2023-07-05 00:00:00 Telephone Martin-Asael s, Nirmala [facility] 1.2.840.114 350.1.13.10 4.2.7.2.686 [id number] 134 [id number] [facility] 2023-06-25 16:15:00 2023-06-25 16:19:52 Outpatient R MARTIN-ASAEL S, NIRMALA MARTIN-ASAEL S, [facility] [id number] [facility] 2023-06-25 16:15:00 2023-06-25 16:19:52 Routine Visit Martin-Asael s, Nirmala [facility] 1.2.840.114 350.1.13.10 4.2.7.2.686 [id number] 134 [id number] [facility] 2023-06-14 00:00:00 2023-06-14 00:00:00 Patient Secure Msg Doctor Unassigned, Ponderosa [facility] 1.2.840.114 350.1.13.10 4.2.7.2.686 [id number] 134 [id number] [facility] 2023-06-14 00:00:00 2023-06-14 00:00:00 Telephone Martin-Asael s, Nirmala [facility] 1.2.840.114 350.1.13.10 4.2.7.2.686 [id number] 134 [id number] [facility] 2023-06-12 14:30:00 2023-06-12 14:45:00 Piano Case Maker Visit Pob, Adc Lab Main Martin-Asael s, Nirmala [facility] 1.2.840.114 350.1.13.10 4.2.7.2.686 [id number] [facility] 2023-06-12 14:30:00 2023-06-12 14:30:00 Outpatient R MARTIN-ASAEL S, NIRMALA MARTIN-ASAEL S, [facility] [id number] [facility] 2023-06-11 16:00:00 2023-06-11 16:31:47 Outpatient R VERONICA-ASAEL S, NIRMALA MARTIN-ASAEL S, [facility] [id number] [facility] 2023-06-11 16:00:00 2023-06-11 16:31:47 [facility] 1..840.114 350.1.13.10 4.2.7.2.686 [id number] [facility] 2023-05-15 08:30:00 2023-05-15 09:19:21 Outpatient P [facility] [id number] [facility] 2023-05-15 08:30:00 2023-05-15 09:19:21 Piano Case Maker Visit Ultrasound, [facility] Alma Gama [facility] PHOTO LAB MANAGER [facility] 1..840.114 350.1.13.10 4.2.7.2.686 [id number] [facility] 2023-05-14 11:30:00 2023-05-14 11:35:34 Outpatient R GINETTE S, NIRMALA MARTIN-ASAEL S, [facility] [id number] [facility] 2023-05-14 11:30:00 2023-05-14 11:35:34 Routine Visit Arsalani sVivienneNirmala [facility] 1..840.114 350.1.13.10 4.2.7.2.686 [id number] [facility] 2023-04-19 08:40:00 2023-04-19 09:23:28 Outpatient R TRICIA VIRK [facility] [id number] [facility] 2023-04-19 08:40:00 2023-04-19 09:23:28 Office Visit Tricia Virk [facility] 1.114 350.1.13.10 4.2.7.2.686 [id number] [facility] 2023-04-19 00:00:00 2023-04-19 00:00:00 Orders Only Doctor Unassigned, [place] [facility] 1..114 350.1.13.10 4.2.7.2.686 [id number] [facility] 2023-04-13 11:15:00 2023-04-13 11:15:00 Outpatient R KIRA [facility] [id number] [facility] 2023-04-10 10:00:00 2023-04-10 11:00:11 Outpatient R MARTIN-ASAEL S, NIRMALA MARTIN-ASAEL S, [facility] [id number] [facility] 2023-04-10 10:00:00 2023-04-10 10:15:00 Routine Visit Veronica-Asael s, Nirmala [facility] 1.114 350.1.13.10 4.2.7.2.686 [id number] [facility] 2023-04-09 12:16:00 2023-04-09 15:20:00 Outpatient X MARTIN-ASAEL S, NIRMALA MARTIN-ASAEL S, NIRMALA [facility] DAHLIA [id number] [facility] 2023-04-09 12:16:00 2023-04-09 15:20:00 Emergency Ivory Short Martin-Asael s, Nirmala [facility] 1.114 350.1.13.10 4.2.7.2.686 [id number] [facility] 2023-04-06 23:40:00 2023-04-07 11:50:00 Outpatient X VERONICA-ASAEL S, NIRMALA VERONICA-ASAEL S, NIRMALA [facility] DAHLIA [id number] [facility] 2023-04-06 23:40:00 2023-04-07 11:50:00 Emergency Ginette castro [facility] 1.840.114 350.1.13.10 4.2.7.2.686 [id number] [facility] 2023-03-30 10:30:00 2023-03-30 10:30:00 Outpatient R ROHIT SANCHEZ [facility] [id number] [facility] 2023-03-27 14:00:00 2023-03-27 14:18:38 Outpatient R BELLA AQUINO [facility] [id number] [facility] 2023-03-27 14:00:00 2023-03-27 14:18:38 Office Visit ApdidiBella [facility] MED[facility] OFF[facility] 1.840.114 350.1.13.10 4.2.7.2.686 [id number] [facility] 2023-03-27 00:00:00 2023-03-27 00:00:00 Orders Only Doctor Unassigned, [place] [facility] 1.0.114 350.1.13.10 4.2.7.2.686 [id number] [facility] 2023-03-26 00:00:00 2023-03-26 00:00:00 Telephone Kira Resendez [facility] 1.2840.114 350.1.13.10 4.2.7.2.686 [id number] [facility] 2023-03-19 21:46:00 2023-03-20 01:55:00 Emergency X KIZZY DAVALOS [facility] ERT [id number] [facility] 2023-03-19 21:46:00 2023-03-20 01:55:00 Emergency Kizzy Davalos [facility] 1.2.840.114 350.1.13.10 4.2.7.2.686 [id number] [facility] 2023-03-20 00:00:00 2023-03-20 00:00:00 Case Management Adum, Kira Dick [facility] BUILD[facility] 1.2.840.114 350.1.13.10 4.2.7.2.686 [id number] [facility] 2023-03-16 12:30:00 2023-03-16 12:45:00 Piano Case Maker Visit Pob, Adc Lab Main Adum, Kira Dick [facility] BUILDING 1.2.840.114 350.1.13.10 4.2.7.2.686 [id number] [facility] 2023-03-16 11:45:00 2023-03-16 12:00:00 Piano Case Maker Visit Pob, Adc Lab Main Adum, Kira Dick [facility] BU[facility] 1.2.840.114 350.1.13.10 4.2.7.2.686 [id number] [facility] 2023-03-16 10:00:00 2023-03-16 11:26:05 Outpatient R ADUM, [facility] [id number] [facility] 2023-03-16 10:00:00 2023-03-16 11:26:05 Initial Visit Adum, Kira Dick [facility] BUILD[facility] 1.2.840.114 350.1.13.10 4.2.7.2.686 [id number] [facility] 2023-03-16 00:00:00 2023-03-16 00:00:00 Telephone AdKira shafer [facility] [facility] [id number] 350.1.13.10 [id number] [id number] [facility] 2023-03-16 00:00:00 2023-03-16 00:00:00 Orders Only Doctor Unassigned, [place] [facility] [id number] 350.1.13.10 [id number] [id number] [facility] 2022-12-17 20:24:00 2022-12-17 23:14:00 Emergency Anjelica Dyer [facility] [id number] [id number] [id number] [id number] [facility] 2022-12-17 20:24:00 2022-12-17 23:14:00 Emergency X DENAE DYERNELL [facility] ERT [id number] [facility] 2022-01-15 19:25:00 2022-01-15 23:15:00 Emergency X PRESTONINGRIDNOAH YENI [facility] ERT [id number] [facility] Results Test Description Test Time Test Comments Results Result Co mments Source [facility] [id number] 21:59:26Ordered by an unspecified provider.[facility] w/o Specific [id number] 19:58:00* Test Item Value Reference Range Interpretation Comme nts POCT PH U (test code = 3254) n/a 5-8 POCT U LEUK EST (test code = 3263) n/a Negative - N egative POCT U NIT (test code = 3262) n/a Negative - Negati ve POCT U PROT (test code = 3259) trace Negative - Negat johann POCT U GLU (test code = 3256) normal Negative - Negati ve POCT U KETONE (test code = 3258) n/a Negative - Neg ative POCT U BLD (test code = 3257) n/a Negative - Negati ve [facility] Urinalysis w/o Specific [id number] 14:02:00* Test Item Value Reference Range Interpretation Comme nts POCT PH U (test code = 3254) n/a 5-8 POCT U LEUK EST (test code = 3263) n/a Negative - Negative POCT U NIT (test code = 3262) n/a Negative - Negati ve POCT U PROT (test code = 3259) negative Negative - Negat johann POCT U GLU (test code = 3256) normal Negative - Negati ve POCT U KETONE (test code = 3258) n/a Negative - Neg ative POCT U BLD (test code = 3257) n/a Negative - Negati ve [facility] Urinalysis w/o Specific [id number] 19:20:00* Test Item Value Reference Range Interpretation Comme nts POCT PH U (test code = 3254) n/a 5-8 POCT U LEUK EST (test code = 3263) n/a Negative - Negative POCT U NIT (test code = 3262) n/a Negative - Negati ve POCT U PROT (test code = 3259) negative Negative - Negat johann POCT U GLU (test code = 3256) normal Negative - Negati ve POCT U KETONE (test code = 3258) n/a Negative - Neg ative POCT U BLD (test code = 3257) n/a Negative - Negati ve [facility] Urinalysis w/o Specific [id number] 18:56:00* Test Item Value Reference Range Interpretation Comme nts POCT PH U (test code = 3254) NA 5-8 POCT U LEUK EST (test code = 3263) NA Negative - Negative POCT U NIT (test code = 3262) NA Negative - Negative POCT U PROT (test code = 3259) negative Negative - Negative POCT U GLU (test code = 3256) negative Negative - Negative POCT U KETONE (test code = 3258) na Negative - Negative POCT U BLD (test code = 3257) na Negative - Negative LAURENT (test code = LAURENT) accurate developme nt and interpretation of all internal controls Lab Interpretation (test code = 64263-2) Normal [facility]1 HR GLUCOSE TOLERANCE [id number] 17:19:17 * Test Item Value Reference Range Interpretation Comme nts GLUC 1 HR (test code = 3789216078) 116 mg/dL 120-170 L Lab Interpretation (test cod e = 09266-6) Abnormal [facility] Hour [facility] [id number] 18:25:50* Test Item Value Reference Range Interpretation Comme nts GLUC 1 HR (test code = 7457916357) 146 mg/dL 120-170 Lab Interpretation (test cod e = 88618-5) Normal [facility] w/o Specific [id number] 16:57:00* Test Item Value Reference Range Interpretation Comme nts POCT PH U (test code = 3254) n/a 5-8 POCT U LEUK EST (test code = 3263) n/a Negative - N egative POCT U NIT (test code = 3262) n/a Negative - Negati ve POCT U PROT (test code = 3259) neg Negative - Negat johann POCT U GLU (test code = 3256) neg Negative - Negati ve POCT U KETONE (test code = 3258) n/a Negative - Neg ative POCT U BLD (test code = 3257) n/a Negative - Negati ve [facility] Urinalysis w/o Specific [id number] 22:09:00* Test Item Value Reference Range Interpretation Comme nts POCT PH U (test code = 3254) n/a 5-8 POCT U LEUK EST (test code = 3263) n/a Negative - N egative POCT U NIT (test code = 3262) n/a Negative - Negati ve POCT U PROT (test code = 3259) neg Negative - Negat johann POCT U GLU (test code = 3256) neg Negative - Negati ve POCT U KETONE (test code = 3258) na Negative - Neg ative POCT U BLD (test code = 3257) n/a Negative - Negati ve [facility]/o Specific [id number] 21:02:00* Test Item Value Reference Range Interpretation Comme nts POCT PH U (test code = 3254) n/a 5-8 POCT U LEUK EST (test code = 3263) n/a Negative - Negative POCT U NIT (test code = 3262) n/a Negative - Negati ve POCT U PROT (test code = 3259) negative Negative - Negat johann POCT U GLU (test code = 3256) negative Negative - Negati ve POCT U KETONE (test code = 3258) n/a Negative - Neg ative POCT U BLD (test code = 3257) n/a Negative - Negati ve [facility]/o Specific [id number] 14:36:00* Test Item Value Reference Range Interpretation Comme nts POCT PH U (test code = 3254) n.a 5-8 POCT U LEUK EST (test code = 3263) n.a Negative - Negative POCT U NIT (test code = 3262) n.a Negative - Negati ve POCT U PROT (test code = 3259) trace Negative - Negat johann POCT U GLU (test code = 3256) negative Negative - Negati ve POCT U KETONE (test code = 3258) n.a Negative - Neg ative POCT U BLD (test code = 3257) n.a Negative - Negati ve [facility]SC[facility] LAB [id number] 18:57:21Ordered by an unspecified provider[facility] [id number] 15:13:00* Test Item Value Reference Range Interpretation Comme nts POCT PH U (test code = 3254) n/a 5-8 POCT U LEUK EST (test code = 3263) n/a Negative - Negative POCT U NIT (test code = 3262) n/a Negative - Negati ve POCT U PROT (test code = 3259) negative Negative - Negat johann POCT U GLU (test code = 3256) negative Negative - Negati ve POCT U KETONE (test code = 3258) n/a Negative - Neg ative POCT U BLD (test code = 3257) n/a Negative - Negati ve [facility] CenterTOTAL BHCG (QUANTITATIVE)2024-05-30 08:14:11* Test Item Value Reference Range Interpretation Comme nts BETA HCG (test code = 7725640819) 56697.00 See_Comment [Automated messa ge] The system which generated this result transmitted reference range: Non- female and male patients: <5 mIU/mL. The reference range was not used to interpret this result as normal/abnormal. LAURENT (test code = LAURENT) Gestational Age ?Range (mIU/mL) 1-10 ?Weeks ?[id number] Weeks ?90204-14778953-57 Weeks ?0643-28642385-01 Weeks ?9085-743076 Biotin has been reported to cause a negative bias, interpret results relative to patient's use of biotin. [facility] CenterUS FIRST TRIMESTER LESS THAN 14 [id number] 07:50:47Ordering physician: DAINEL ZIMMER INDICATION: 7 weeks , left lower quadrant pain for 2 hours COMPARISON: None TECHNIQUE: Grayscale and Doppler images of the pelvis were performed via atransabdominal and endovaginal approach. FINDINGS: The uterus measures 10.0 x 6.1 x 6.4 cm. There is an intrauterinegestational sac, with pole identified. There is a small subchorionichemorrhage measuring 10 mm, contacting approximately 20% of the gestationalsac. The sac is normal in configuration,with grossly normal amniotic fluidlevel. heart rate is measured at 142 bpm. The left ovary rosangela sures 4.9 x 2.3 x 2.2 cm and the right ovary measures 2.7x 1.9 x 2.3 cm. There is normal color Doppler flow in the ovariesbilaterally. Spectral Doppler waveforms were not obtained. No adnexal massis appreciated. There is trace free fluid in the posterior cul-de-sac.[facility] CenterPREGNANCY TEST, [id number] 06:02:44* Test Item Value Reference Range Interpretation Comme nts PREG SERUM (test code = 7101794417) Positive LAURENT (test code = LAURENT) Positive greater t brown or equal to 10 IU/L hCG. [facility] CenterType and Screen - ONCE [id number] 05:14:00* Test Item Value Reference Range Interpretation Comme nts ABO & RH (test code = 20) B Positive IAT (test code = 1185) Negative [facility] [id number] 05:10:00* Test Item Value Reference Range Interpretation Comme nts POCT PREG (test code = 1605) Positive On board controls acceptable with C Line (test code = 3574) Yes POCT PREG LOT # (test code = 3575) [id number] POCT PREG TEST DATE ( test code = 3576) 2025-08-02 Lab Interpretation (test cod e = 55348-5) Normal [facility] (D) IMMUNE [id number] 19:22:04* Test Item Value Reference Range Interpretation Comme nts RHIG CANDIDATE? (test code = 5188) No- see comment Patient is not a candidate for RhIg- Patient is Rh Positive.Performed at [facility] Laboratory Services [facility] Blood [address] [place], [place] [address]Toll Free: [phone] No. [id number] [facility] (D) IMMUNE [id number] 19:22:04* Test Item Value Reference Range Interpretation Comme nts RHIG CANDIDATE? (test code = 5188) No- see comment Patient is not a candidate for RhIg- Patient is Rh Positive.Performed at [facility] Laboratory Services [facility] Blood [address] [place], [place] [id number] Free: [phone] No. [id number] [facility] URINALYSIS W/O SPECIFIC [id number] 17:33:00* Test Item Value Reference Range Interpretation Comme nts POCT PH U (test code = 3254) n/a 5-8 POCT U LEUK EST (test code = 3263) n/a Negative - Negative POCT U NIT (test code = 3262) n/a Negative - Negati ve POCT U PROT (test code = 3259) Negative Negative - Negat johann POCT U GLU (test code = 3256) Normal Negative - Negati ve POCT U KETONE (test code = 3258) n/a Negative - Neg ative POCT U BLD (test code = 3257) n/a Negative - Negati ve [facility] URINALYSIS W/O SPECIFIC [id number] 15:42:00* Test Item Value Reference Range Interpretation Comme nts POCT PH U (test code = 3254) n/a 5-8 POCT U LEUK EST (test code = 3263) n/a Negative - N egative POCT U NIT (test code = 3262) n/a Negative - Negati ve POCT U PROT (test code = 3259) trace Negative - Negat johann POCT U GLU (test code = 3256) normal Negative - Negati ve POCT U KETONE (test code = 3258) n/a Negative - Neg ative POCT U BLD (test code = 3257) n/a Negative - Negati ve [facility] URINALYSIS W/O SPECIFIC [id number] 16:38:00* Test Item Value Reference Range Interpretation Comme nts POCT PH U (test code = 3254) 6 mg/dl 5-8 POCT U LEUK EST (test code = 3263) 2+ Negative - Negative POCT U NIT (test code = 3262) negative Negative - Negati ve POCT U PROT (test code = 3259) 30 Negative - Negat johann POCT U GLU (test code = 3256) negative Negative - Negati ve POCT U KETONE (test code = 3258) 1+ Negative - Neg ative POCT U BLD (test code = 3257) negative Negative - Negati ve [facility] URINALYSIS W/O SPECIFIC [id number] 15:24:00* Test Item Value Reference Range Interpretation Comme nts POCT PH U (test code = 3254) n/a 5-8 POCT U LEUK EST (test code = 3263) n/a Negative - Negative POCT U NIT (test code = 3262) n/a Negative - Negati ve POCT U PROT (test code = 3259) negative Negative - Negat johann POCT U GLU (test code = 3256) trace Negative - Negati ve POCT U KETONE (test code = 3258) n/a Negative - Neg ative POCT U BLD (test code = 3257) n/a Negative - Negati ve [facility] URINALYSIS W/O SPECIFIC [id number] 21:03:00* Test Item Value Reference Range Interpretation Comme nts POCT PH U (test code = 3254) n/a 5-8 POCT U LEUK EST (test code = 3263) n/a Negative - Negative POCT U NIT (test code = 3262) n/a Negative - Negati ve POCT U PROT (test code = 3259) negative Negative - Negat johann POCT U GLU (test code = 3256) normal Negative - Negati ve POCT U KETONE (test code = 3258) n/a Negative - Neg ative POCT U BLD (test code = 3257) n/a Negative - Negati ve [facility] URINALYSIS W/O SPECIFIC [id number] 20:53:00* Test Item Value Reference Range Interpretation Comme nts POCT PH U (test code = 3254) n/a 5-8 POCT U LEUK EST (test code = 3263) n/a Negative - Negative POCT U NIT (test code = 3262) n/a Negative - Negati ve POCT U PROT (test code = 3259) Negative Negative - Negat johann POCT U GLU (test code = 3256) Normal Negative - Negati ve POCT U KETONE (test code = 3258) n/a Negative - Neg ative POCT U BLD (test code = 3257) n/a Negative - Negati ve [facility] URINALYSIS W/O SPECIFIC [id number] 20:58:00* Test Item Value Reference Range Interpretation Comme nts POCT PH U (test code = 3254) n/a 5-8 POCT U LEUK EST (test code = 3263) n/a Negative - Negative POCT U NIT (test code = 3262) n/a Negative - Negati ve POCT U PROT (test code = 3259) negative Negative - Negat johann POCT U GLU (test code = 3256) negative Negative - Negati ve POCT U KETONE (test code = 3258) n/a Negative - Neg ative POCT U BLD (test code = 3257) n/a Negative - Negati ve [facility]1 HR GLUCOSE TOLERANCE [id number] 20:57:25 * Test Item Value Reference Range Interpretation Comme nts GLUC 1 HR (test code = 4197509855) 89 mg/dL 120-170 L Lab Interpretation (test cod e = 34700-1) Abnormal [facility] CenterHIV [facility]/2 AG-AB WITH [id number] 20:50:01* Test Item Value Reference Range Interpretation Comme nts HIV Semi-quantitative (test code = 41949-1) 0.07 Negative LAURENT (test code = LAURENT) Non-reactive for HIV-1 antigen and HIV-1/HIV-2 antibodies. ?No laboratory evidence of HIV infection. ?Repeat in 2-4 weeks if acute HIV infection is suspected. [facility] CenterCBC WITH [id number] 18:06:23* Test Item Value Reference Range Interpretation Comme nts WBC (test code = 6690-2) 7.54 See_Comment [Automated messa ge] The system which generated this result transmitted reference range: 4.30 - 11.10 10*3/?L. The reference range was not used to interpret this result as normal/abnormal. RBC (test code = 789-8) 3.71 See_Comment L [Automated messa ge] The system which generated this result transmitted reference range: 3.93 - 5.25 10*6/?L. The reference range was not used to interpret this result as normal/abnormal. HGB (test code = 718-7) 9.9 g/dL 11.6-15.0 L HCT (test code = 4544-3) 31.4 % 35.7-45.2 L MCV (test code = 787-2) 84.6 fL 80.6-95.5 MCH (test code = 785-6) 26.7 pg 25.9-32.8 MCHC (test code = 786-4) 31.5 g/dL 31.6-35.1 L RDW-SD (test code = 64105-3) 46.4 fL 39.0-49.9 RDW-CV (test code = 788-0) 15.6 % 12.0-15.5 H PLT (test code = 777-3) 214 See_Comment [Automated messa ge] The system which generated this result transmitted reference range: 166 - 358 10*3/?L. The reference range was not used to interpret this result as normal/abnormal. MPV (test code = 22459-2) 10.9 fL 9.5-12.9 NRBC/100 WBC (test code = 9283348842) 0.0 See_Comment [Automated [employer] ssage] The system which generated this result transmitted reference range: 0.0 - 10.0 /100 WBCs. The reference range was not used to interpret this result as normal/abnormal. NRBC x10^3 (test code = 2770905348) See_Comment [Automated messa ge] The system which generated this result transmitted reference range: 10*3/?L. The reference range was not used to interpret this result as normal/abnormal. GRAN MAT (NEUT) % (test code = 770-8) 79.4 % IMM GRAN % (test code = 3489646416) 0.70 % LYMPH % (test code = 736-9) 13.5 % MONO % (test code = 5905-5) 4.0 % EOS % (test code = 713-8) 1.9 % BASO % (test code = 706-2) 0.5 % GRAN MAT x10^3(ANC) (test code = 8074852990) 5.99 10*3/uL 1.88-7.09 IMM GRAN x10^3 (test code = 4717777220) 0.05 10*3/uL 0.00-0.06 LYMPH x10^3 (test code = 731-0) 1.02 10*3/uL 1.32-3.29 L MONO x10^3 (test code = 742-7) 0.30 10*3/uL 0.33-0.92 L EOS x10^3 (test code = 711-2) 0.14 10*3/uL 0.03-0.39 BASO x10^3 (test code = 704-7) 0.04 10*3/uL 0.01-0.07 Lab Interpretation (test code = 39176-1) Abnormal [facility] CenterPRENATAL WORKUP, BLOOD [id number] 17:59:00 * Test Item Value Reference Range Interpretation Comme nts ABO & RH (test code = 20) B Positive IAT (test code = 1185) Negative [facility] URINALYSIS W/O SPECIFIC [id number] 21:11:00* Test Item Value Reference Range Interpretation Comme nts POCT PH U (test code = 3254) n/a 5-8 POCT U LEUK EST (test code = 3263) n/a Negative - N egative POCT U NIT (test code = 3262) n/a Negative - Negati ve POCT U PROT (test code = 3259) neg Negative - Negat johann POCT U GLU (test code = 3256) neg Negative - Negati ve POCT U KETONE (test code = 3258) n/a Negative - Neg ative POCT U BLD (test code = 3257) n/a Negative - Negati ve [facility] URINALYSIS W/O SPECIFIC [id number] 21:11:00* Test Item Value Reference Range Interpretation Comme nts POCT PH U (test code = 3254) n/a 5-8 POCT U LEUK EST (test code = 3263) n/a Negative - N egative POCT U NIT (test code = 3262) n/a Negative - Negati ve POCT U PROT (test code = 3259) neg Negative - Negat johann POCT U GLU (test code = 3256) neg Negative - Negati ve POCT U KETONE (test code = 3258) n/a Negative - Neg ative POCT U BLD (test code = 3257) n/a Negative - Negati ve [facility] URINALYSIS W/O SPECIFIC [id number] 16:17:00* Test Item Value Reference Range Interpretation Comme nts POCT PH U (test code = 3254) n/a 5-8 POCT U LEUK EST (test code = 3263) n/a Negative - Negative POCT U NIT (test code = 3262) n/a Negative - Negati ve POCT U PROT (test code = 3259) Negative Negative - Negat johann POCT U GLU (test code = 3256) Normal Negative - Negati ve POCT U KETONE (test code = 3258) n/a Negative - Neg ative POCT U BLD (test code = 3257) n/a Negative - Negati ve [facility] BHCG (QUANTITATIVE)2023-03-20 04:26:23* Test Item Value Reference Range Interpretation Comme nts BETA HCG (test code = 0388202326) 27319.00 See_Comment [Automated messa ge] The system which generated this result transmitted reference range: Non- female and male patients: <5 mIU/mL. The reference range was not used to interpret this result as normal/abnormal. ALURENT (test code = LAURENT) Gestational Age ?Range (mIU/mL) 1-10 ?Weeks ?36-18398789-48 Weeks ?60263-49265528-22 Weeks ?6903-65867970-03 Weeks ?2724-843338 Biotin has been reported to cause a negative bias, interpret results relative to patient's use of biotin. [facility] WITH [id number] 03:25:27* Test Item Value Reference Range Interpretation Comme nts WBC (test code = 6690-2) 9.05 See_Comment [Automated messa ge] The system which generated this result transmitted reference range: 4.30 - 11.10 10*3/?L. The reference range was not used to interpret this result as normal/abnormal. RBC (test code = 789-8) 4.18 See_Comment [Automated messa ge] The system which generated this result transmitted reference range: 3.93 - 5.25 10*6/?L. The reference range was not used to interpret this result as normal/abnormal. HGB (test code = 718-7) 11.3 g/dL 11.6-15.0 L HCT (test code = 4544-3) 33.6 % 35.7-45.2 L MCV (test code = 787-2) 80.4 fL 80.6-95.5 L MCH (test code = 785-6) 27.0 pg 25.9-32.8 MCHC (test code = 786-4) 33.6 g/dL 31.6-35.1 RDW-SD (test code = 05067-1) 44.0 fL 39.0-49.9 RDW-CV (test code = 788-0) 15.1 % 12.0-15.5 PLT (test code = 777-3) 233 See_Comment [Automated messa ge] The system which generated this result transmitted reference range: 166 - 358 10*3/?L. The reference range was not used to interpret this result as normal/abnormal. MPV (test code = 46270-2) 11.2 fL 9.5-12.9 NRBC/100 WBC (test code = 2459550236) 0.0 See_Comment [Automated [employer] ssage] The system which generated this result transmitted reference range: 0.0 - 10.0 /100 WBCs. The reference range was not used to interpret this result as normal/abnormal. NRBC x10^3 (test code = 7175524095) See_Comment [Automated messa ge] The system which generated this result transmitted reference range: 10*3/?L. The reference range was not used to interpret this result as normal/abnormal. GRAN MAT (NEUT) % (test code = 770-8) 68.0 % IMM GRAN % (test code = 5959567888) 0.30 % LYMPH % (test code = 736-9) 20.8 % MONO % (test code = 5905-5) 5.9 % EOS % (test code = 713-8) 4.4 % BASO % (test code = 706-2) 0.6 % GRAN MAT x10^3(ANC) (test code = 3831554251) 6.16 10*3/uL 1.88-7.09 IMM GRAN x10^3 (test code = 4911933347) 0.03 10*3/uL 0.00-0.06 LYMPH x10^3 (test code = 731-0) 1.88 10*3/uL 1.32-3.29 MONO x10^3 (test code = 742-7) 0.53 10*3/uL 0.33-0.92 EOS x10^3 (test code = 711-2) 0.40 10*3/uL 0.03-0.39 H BASO x10^3 (test code = 704-7) 0.05 10*3/uL 0.01-0.07 Lab Interpretation (test code = 46038-0) Abnormal [facility] URINALYSIS W/O SPECIFIC [id number] 15:14:00* Test Item Value Reference Range Interpretation Comme nts POCT PH U (test code = 3254) n/a 5-8 POCT U LEUK EST (test code = 3263) n/a Negative - Negative POCT U NIT (test code = 3262) n/a Negative - Negati ve POCT U PROT (test code = 3259) Negative Negative - Negat johann POCT U GLU (test code = 3256) Normal Negative - Negati ve POCT U KETONE (test code = 3258) n/a Negative - Neg ative POCT U BLD (test code = 3257) n/a Negative - Negati ve [facility] [id number] 15:14:00* Test Item Value Reference Range Interpretation Comme nts POCT PREG (test code = 1605) Positive On board controls acceptable with C Line (test code = 3574) Yes POCT PREG LOT # (test code = 3575) POCT PREG TEST DATE ( test code = 3576) [facility] URINALYSIS W/O SPECIFIC [id number] 15:14:00* Test Item Value Reference Range Interpretation Comme nts POCT PH U (test code = 3254) n/a 5-8 POCT U LEUK EST (test code = 3263) n/a Negative - Negative POCT U NIT (test code = 3262) n/a Negative - Negati ve POCT U PROT (test code = 3259) Negative Negative - Negat johann POCT U GLU (test code = 3256) Normal Negative - Negati ve POCT U KETONE (test code = 3258) n/a Negative - Neg ative POCT U BLD (test code = 3257) n/a Negative - Negati ve [facility] [id number] 15:14:00* Test Item Value Reference Range Interpretation Comme nts POCT PREG (test code = 1605) Positive On board controls acceptable with C Line (test code = 3574) Yes POCT PREG LOT # (test code = 3575) POCT PREG TEST DATE ( test code = 3576) [facility] [id number] 03:17:00* Test Item Value Reference Range Interpretation Comme nts POCT PREG (test code = 1605) negative On board controls acceptable with C Line (test code = 3574) present POCT PREG LOT # (test code = 3575) [id number] POCT PREG TEST DATE ( test code = 3576) 01/27/2024 Lab Interpretation (test cod e = 13644-4) Normal [facility] Notes Date/Time Note Provider Source 2025-01-01 14:15:00 Age: [age] year old GA: 37w1d ASSESSMENT: Edwin Perry is a 24 year old at 37w1d who presents for routine visit. Patient Active Problem List Diagnosis Dwarfism, pituitary Scoliosis High-risk in second trimester Previous section complicating PLAN 1. High-risk in third trimester ----low risk NIPS --MSAFP NL --09/09/24: NL anatomy, negative PAS, >97%ile 2. Previous section complicating --CS x1 --RCS planned on 01/16/25 3. 37 weeks gestation of - POCT Urinalysis w/o Specific [facility] 2024-12-26 14:15:00 Images from the original note were not included. Venipuncture collection performed by clean technique on the right anticubitus. Total of 1 attempts were made. Slight pressure and a bandage/dressing were applied to the site(s). The patient experienced no complications. The following specimens were processed according to instructions and sent to [facility] laboratories per lab order on 12/26/2024: LT BLUE SST RED LAV 1 PPT DK GREEN (LiHep) DK GREEN (SodH) HESTER DK BLUE (K2) DK BLUE (S) ACD Blood Culture NIPT/NTD [facility] 2024-12-26 13:45:00 Age: [age] year old GA: 36w2d ASSESSMENT: Edwin Perry is a 24 year old at 36w2d who presents for routine visit. Patient Active Problem List Diagnosis Dwarfism, pituitary Scoliosis High-risk in second trimester Previous section complicating PLAN 1. High-risk in third trimester ----low risk NIPS --MSAFP NL --09/09/24: NL anatomy, negative PAS, >97%ile 2. Previous section complicating --CS x1 --RCS planned on 01/16/25 3. Sciatic nerve disease, right --reviewed with pt exercises to help with pain --Tylenol as needed 4. 36 weeks gestation of - Cbc with Diff; Future - Gc & Chlamydia Amplified Assay - Group B Streptococcus By PCR - POCT Urinalysis w/o Specific [place] [facility] 2024-12-19 08:00:00 Age: [age] year old GA: 35w2d ASSESSMENT: Edwin Perry is a 24 year old at 35w2d who presents for routine visit. Patient Active Problem List Diagnosis Dwarfism, pituitary Scoliosis High-risk in second trimester Previous section complicating PLAN 1. High-risk in third trimester ----low risk NIPS --MSAFP NL --09/09/24: NL anatomy, negative PAS, >97%ile - POCT Urinalysis w/o Specific [place] 2. Previous section complicating --CS x1 --RCS planned on 01/16/25 3. 35 weeks gestation of --Plan GBS next visit [facility] 2024-11-24 13:00:00 Age: [age] year old GA: 31w5d ASSESSMENT: Edwin Perry is a 24 year old at 31w5d who presents for routine visit. Patient Active Problem List Diagnosis Dwarfism, pituitary Scoliosis High-risk in second trimester Previous section complicating PLAN 1. 31 weeks gestation of - POCT Urinalysis w/o Specific [place] 2. High-risk in third trimester ----low risk NIPS --MSAFP NL --09/09/24: NL anatomy, negative PAS, >97%ile 3. Previous section complicating [facility] 2024-11-22 09:07:54 Patient reports that starting yesterday she begin to intermittently have a "hard" abdomen and intermittent abdominal cramping. Denies vaginal bleeding. Denies trauma. A0. Rosangela is OB. Est delivery date is 01/16. Report to Ankur WILBURN. SALES MANAGER Heraclio Cisneros RN [facility] 2024-11-10 13:00:00 Age: [age] year old GA: 29w5d ASSESSMENT: Edwin Perry is a 24 year old at 29w5d who presents for routine visit. Patient Active Problem List Diagnosis Dwarfism, pituitary Scoliosis High-risk in second trimester Previous section complicating PLAN 1. High-risk in third trimester ----low risk NIPS --MSAFP NL --09/09/24: NL anatomy, negative PAS, >97%ile 2. Previous section complicating --CS x1 --Plan RCS 01/17/24 3. 29 weeks gestation of - POCT Urinalysis w/o Specific [place] SALES MANAGER [facility] 2024-10-30 08:15:00 Images from the original note were not included. Loaded pt w 100gm orange glucola, no issues. Draw time: 0926,1026, 1126 Venipuncture collection performed by clean technique on the left anticubitus. Total of 1 attempts were made. Slight pressure and a bandage/dressing were applied to the site(s). The patient experienced no complications. The following specimens were processed according to instructions and sent to [facility] laboratories per lab order on 10/30/2024 : LT BLUE SST 1 RED LAV PPT DK GREEN (LiHep) DK GREEN (SodH) HESTER DK BLUE (K2) DK BLUE (S) ACD Blood Culture NIPT/NTD [facility] 2024-10-30 08:15:00 Images from the original note were not included. Venipuncture collection performed by clean technique on the left anticubitus. Total of 1 attempts were made. Slight pressure and a bandage/dressing were applied to the site(s). The patient experienced no complications. The following specimens were processed according to instructions and sent to [facility] laboratories per lab order on 10/30/2024 : LT BLUE SST 1 RED LAV PPT DK GREEN (LiHep) DK GREEN (SodH) HESTER DK BLUE (K2) DK BLUE (S) ACD Blood Culture NIPT/NTD [facility] 2024-10-30 08:15:00 Images from the original note were not included. Venipuncture collection performed by clean technique on the left anticubitus. Total of 1 attempts were made. Slight pressure and a bandage/dressing were applied to the site(s). The patient experienced no complications. The following specimens were processed according to instructions and sent to [facility] laboratories per lab order on 10/30/2024 : LT BLUE SST 1 RED LAV PPT DK GREEN (LiHep) DK GREEN (SodH) HESTER DK BLUE (K2) DK BLUE (S) ACD Blood Culture NIPT/NTD [facility] Nichole Renee [facility] 2024-10-30 08:15:00 Images from the original note were not included. Venipuncture collection performed by clean technique on the left anticubitus. Total of 1 attempts were made. Slight pressure and a bandage/dressing were applied to the site(s). The patient experienced no complications. The following specimens were processed according to instructions and sent to [facility] laboratories per lab order on 10/30/2024 : LT BLUE SST 1 RED LAV PPT DK GREEN (LiHep) DK GREEN (SodH) HESTER DK BLUE (K2) DK BLUE (S) ACD Blood Culture NIPT/NTD [facility] 2024-10-28 10:00:00 Given 50gm [place] glucola. Finished at 1013. [facility] Candelaria Campbell [facility] 2024-10-28 10:00:00 Images from the original note were not included. Venipuncture collection performed by clean technique on the left anticubitus. Total of 1 attempts were made. Slight pressure and a bandage/dressing were applied to the site(s). The patient experienced no complications. The following specimens were processed according to instructions and sent to [facility] laboratories per lab order on 10/28/2024 : LT BLUE SST 1 RED LAV PPT DK GREEN (LiHep) DK GREEN (SodH) HESTER DK BLUE (K2) DK BLUE (S) ACD Blood Culture NIPT/NTD [facility] 2024-10-28 10:00:00 Elevated 1 hr glucose testing, will need 3 hour glucose test. Will need to be fasting for 8 hours for that test. If abnormal could show gestational diabetes. [facility] 2024-10-28 10:00:00 Addended by: GELACIO CALIXTO on: 10/28/2024 12:47 PM Modules accepted: Orders [facility] 2024-10-27 11:15:00 Age: [age] year old GA: 27w5d ASSESSMENT: Edwin Perry is a 24 year old at 27w5d who presents for routine visit. Patient Active Problem List Diagnosis Dwarfism, pituitary Scoliosis High-risk in second trimester Previous section complicating PLAN 1. High-risk in second trimester --low risk NIPS --MSAFP NL --09/09/24: NL anatomy, negative PAS, >97%ile 2. Previous section complicating --CS x1 --Plan RCS 01/17/24 3. 27 weeks gestation of --note to be given for PO with the above information --Still needs to compete 1 hr gtt --Tdap vaccine today. - POCT Urinalysis w/o Specific [place] [facility] 2024-10-13 10:00:00 Images from the original note were not included. Pt refused Glucose testing today, will return back to complete. Venipuncture collection performed by clean technique on the right anticubitus. Total of 1 attempts were made. Slight pressure and a bandage/dressing were applied to the site(s). The patient experienced no complications. The following specimens were processed according to instructions and sent to [facility] laboratories per lab order on 10/13/2024: LT BLUE SST 1 RED 1 LAV 2 PPT DK GREEN (LiHep) DK GREEN (SodH) HESTER DK BLUE (K2) DK BLUE (S) ACD Blood Culture NIPT/NTD [facility] 2024-09-29 16:15:00 Age: [age] year old GA: 23w5d ASSESSMENT: Edwin Perry is a 24 year old at 23w5d who presents for routine visit. Patient Active Problem List Diagnosis Dwarfism, pituitary Scoliosis High-risk in second trimester Previous section complicating PLAN 1. High-risk in second trimester --low risk NIPS --AFP NL - POCT Urinalysis w/o Specific [place] - Glucose 1 Hour Post Prandial; Future - Cbc with Diff; Future - HIV 1/2 Ag-Ab with Reflex; Future - ADC or Calli Only - Rpr; Future - Workup, Blood Bank; Future - CASE REQUEST: SECTION; Standing - CASE REQUEST: SECTION 2. Previous section complicating --Plan RCS 01/17/24 - POCT Urinalysis w/o Specific [place] - CASE REQUEST: SECTION; Standing - CASE REQUEST: SECTION 3. 23 weeks gestation of [facility] 2024-09-09 14:15:00 Reviewed recent ultrasound results, show: Normal anatomy SALES MANAGER [facility] 2024-08-29 16:15:00 Age: [age] year old GA: 19w2d ASSESSMENT: Edwin Perry is a 24 year old at 19w2d who presents for routine visit. Patient Active Problem List Diagnosis Dwarfism, pituitary Scoliosis High-risk in second trimester Previous section complicating PLAN 1. High-risk in second trimester --low risk NIPS --AFP NL 2. Previous section complicating --CS x 1, plan RCS 3. 19 weeks gestation of - POCT Urinalysis w/o Specific [place] [facility] 2024-08-01 10:30:00 Images from the original note were not included. Venipuncture collection performed by clean technique on the right anticubitus. Total of 1 attempts were made. Slight pressure and a bandage/dressing were applied to the site(s). The patient experienced no complications. The following specimens were processed according to instructions and sent to [facility] laboratories per lab order on .ttd: LT BLUE SST 1 RED LAV 1 PPT DK GREEN (LiHep) DK GREEN (SodH) HESTER DK BLUE (K2) DK BLUE (S) ACD Blood Culture NIPT/NTD Patient has been identified by and name and was provided with cup, antiseptic towelette, and clean catch instructions. 2 urine specimen(s) sent. Unpreserved 1 Urine Culture 1 Aptima tube Other urine [facility] 2024-07-31 09:45:00 ROUTINE VISIT 07/31/2024 10:03 AM SUBJECTIVE Edwin Perry is a 24 year old at 15w1d who presents for routine visit. She has some vaginal discharge (denies itching or odor) complaints today; denies contractions, loss of fluid, vaginal bleeding, and signs or symptoms of pre-eclampsia. OBJECTIVE BP 111/78 (BP Location: Left arm, Patient Position: Sitting, BP CUFF SIZE: Adult Small) | Pulse 82 | Temp 36.1 ?C (96.9 ?F) | Ht 4' 9" (1.448 m) | Wt 88 lb (39.9 kg) | LMP 04/16/2024 | BMI 19.04 kg/m? FHT: Physical Exam: Gen: A&Ox3, NAD Pulm: No labored breathing Abd: Soft, gravid, NTTP, ND, no rebound or guarding Ext: No calf tenderness : cl/long. White discharge noted ASSESSMENT: Edwin Perry is a 24 year old at 15w1d who presents for routine visit. Patient Active Problem List Diagnosis Dwarfism, pituitary Scoliosis High-risk in second trimester Encounter for elective induction of labor 39 weeks gestation of Previous section complicating PLAN 1. High-risk in second trimester --low risk NIPS --AFP today - CONSULT MATERNAL MEDICINE ULTRASOUND Multiple Gestation: No 2. Previous section complicating --CS x1 --Plan RCS - CONSULT MATERNAL MEDICINE ULTRASOUND Multiple Gestation: No 3. Vaginal discharge --culture collected, will contact with results - Galv Only - Vaginal Pathogens by Nucleic Acid Testing; Future - Galv Only - Vaginal Pathogens by Nucleic Acid Testing 4. 15 weeks gestation of - POCT Urinalysis w/o Specific [place] - Alpha Fetoprotein-Maternal Ser; Future - CONSULT MATERNAL MEDICINE ULTRASOUND Multiple Gestation: No Nirmala Adames MD [facility] 2024-07-11 08:34:08 Patient viewed on [employer]. Kyrie Winston RN 07/11/2024 8:35 AM Kyrie Winston RN [facility] 2024-07-10 10:00:19 Received Panorama results via fax. Stamped and will be scanned/uploaded into pt's chart. [employer] message sent. CHARISSE PEÑALOZA RN 07/10/2024 10:03 AM Charisse Peñaloza RN [facility] 2024-07-03 10:45:00 Images from the original note were not included. Pt did urine in clinic [place] collected Venipuncture collection performed by clean technique on the left anticubitus. Total of 1 attempts were made. Slight pressure and a bandage/dressing were applied to the site(s). The patient experienced no complications. The following specimens were processed according to instructions and sent to [facility] laboratories per lab order on 07/03/2024 LT BLUE SST 3 RED 1 LAV 2 PPT DK GREEN (LiHep) DK GREEN (SodH) HESTER DK BLUE (K2) DK BLUE (S) ACD Blood Culture NIPT/NTD [facility] 2024-06-14 21:33:48 Pt given printed and verbal discharge instructions regarding vomiting, encouraged hydration. Prescriptions provided. Pt verbalized understanding of instructions, pt awake alert oriented, resp reg unlabored, skin w/d, color appropriate for race, moves all ext well,pt encouraged to follow up with pcp and PHOTO LAB MANAGER Advised to seek medical attention for new/prolonged/worsening of symptoms. Awake, alert oriented, resp reg unlabored, skin w/d, pt leaving amb with steady gait, in no apparent distress. Shari Short RN [facility] 2024-06-14 19:45:09 Patient arrived ambulatory to ED c/o vomiting, sneezing, headache, and congestion that started this AM when patient woke up. Last medications taken were Tylenol and Benadryl around 1800. Patient is 8 weeks . Sai He RN [facility] 2024-06-14 19:42:00 [facility] Emergency Department Note Patient Name: Edwin Perry Date of : 2000 24 year old female Treatment Room: [facility] Primary Care Physician: PATIENT DOES NOT HAVE A PCP Patient Escorted by: Family [5] Mode of Arrival: Personal means [1] EMS Treatment Prior to ED Arrival: CONSTRUCTION SUPERVISOR/CARPENTER treatment: Medication (comment) CONSTRUCTION SUPERVISOR/CARPENTER treatment comments: Tylenol and Benadryl Travel and Exposure Screening: Symptoms Does patient have any of these symptoms?: (not recorded) Exposure Screening Has patient had contact with someone with a communicable disease in the last month?: (not recorded) Diseases exposed to:: (not recorded) Is Patient ?: (not recorded) Exposure Date: (not recorded) Chief Complaint: Chief Complaint Patient presents with Vomiting Congestion Headache History of Present Illness: 24-year-old female G2, P1 in early presenting for evaluation for viral syndrome. Patient has congestion runny nose and cough. Afebrile. Temperature 99.1. Additionally has symptoms of nausea and vomiting. Able to tolerate p.o. No urinary symptoms. No related complaints. Reglan Past Medical History/Immunizations: Past Medical History: Diagnosis Date Dwarfism, pituitary Right arm pain 04/25/2016 Scoliosis Tetanus received in last 5 years: Unknown Allergies: No Known Allergies Past Social History: Tobacco Use Never smoked or used smokeless tobacco. Passive Exposure: Never Vaping Use Never used Alcohol Use Not Currently. Drug Use No. Sexual Activity Sexually active; Partners: Male. Past Surgical History: Past Surgical History: Procedure Laterality Date SECTION N/A 09/10/2023 Surgeon: Nirmala Adames MD; Location: [facility] Review of Systems: Review of Systems Constitutional: Positive for chills and fatigue. Negative for fever. HENT: Positive for sore throat. Negative for congestion and postnasal drip. Eyes: Negative for pain. Respiratory: Positive for cough. Negative for chest tightness, shortness of breath and stridor. Breasts: Negative for pain. Cardiovascular: Negative for chest pain. Gastrointestinal: Positive for nausea and vomiting. Negative for diarrhea. Genitourinary: Negative for dysuria. Musculoskeletal: Positive for myalgias. Skin: Negative. Neurological: Positive for headaches. Negative for dizziness and light-headedness. Physical Exam: ED Triage Vitals [06/14/241946] Weight 38.8 kg (85 lb 8 oz) Actual or estimated Actual Height 1.448 m (4' 9") BP 114/83 Pulse 95 Resp 16 Temp 37.3 ?C (99.1 ?F) Temp source Oral SpO2 100 % Measured on Room air Physical Exam Vitals and nursing note reviewed. Constitutional: General: She is not in acute distress. Appearance: She is well-developed. She is not diaphoretic. HENT: Head: Normocephalic and atraumatic. Right Ear: External ear normal. Left Ear: External ear normal. Nose: Nose normal. Eyes: General: No scleral icterus. Conjunctiva/sclera: Conjunctivae normal. Pupils: Pupils are equal, round, and reactive to light. Cardiovascular: Rate and Rhythm: Normal rate and regular rhythm. Heart sounds: Normal heart sounds. Pulmonary: Effort: Pulmonary effort is normal. Breath sounds: Normal breath sounds. Abdominal: General: Bowel sounds are normal. Palpations: Abdomen is soft. Tenderness: There is no abdominal tenderness. Musculoskeletal: General: Normal range of motion. Cervical back: Normal range of motion and neck supple. Skin: General: Skin is warm and dry. Neurological: Mental Status: She is alert and oriented to person, place, and time. Cranial Nerves: No cranial nerve deficit. Deep Tendon Reflexes: Reflexes are normal and symmetric. Psychiatric: Behavior: Behavior normal. Thought Content: Thought content normal. Radiology: No orders to display Lab Results: Lab Results INFLUENZA A/B RSV COVID NAAT - Normal Result Value Ref Range Influenza A NAAT Negative Negative Influenza B NAAT Negative Negative RSV by PCR Negative Negative SARS-CoV-2 NAAT Negative Negative EKG: If EKG completed, see Procedure Note. Orders and Treatments: Orders Placed This Encounter Procedures Influenza A B RSV COVID NAAT Lab Only COVID Interpretation Orders Placed This Encounter Medications hydrOXYzine 10 mg tablet metoclopramide HCl 10 mg tablet First Provider Eval: ED Events None ED COURSE Diagnosis/Impression as of 06/14/242118 Acute viral syndrome Nausea and vomiting, unspecified vomiting type Procedures: Procedures MDM: Medical Decision Making Problems Addressed: Acute viral syndrome: acute illness or injury Details: Labs negative for common viruses. Symptoms consistent with viral syndrome. No distress. Home with atarax and reglan. Return precautions given. Nausea and vomiting, unspecified vomiting type: acute illness or injury Amount and/or Complexity of Data Reviewed Labs: ordered. Risk Prescription drug management. Flowsheet Documentation: Scoring Tools: No data recorded Disposition/Condition: ED Disposition ED Disposition Disch - Home Condition Stable Comment -- Discharge Medications: Patient's Medications START taking these medications HYDROXYZINE 10 MG TABLET Take 1 tablet by mouth every 6 (six) hours. METOCLOPRAMIDE HCL 10 MG TABLET Take 1 tablet by mouth every 6 (six) hours. CONTINUE taking these medications which have NOT CHANGED DOCUSATE 100 MG CAPSULE Take 2 capsules by mouth once daily as needed for Constipation. FERROUS SULFATE 325 MG (65 MG IRON) TABLET Take 1 tablet by mouth in the morning and 1 tablet in the evening. IBUPROFEN 600 MG TABLET Take 1 tablet by mouth every 6 (six) hours as needed (Pain). Take with food or milk. VITAMIN W/FA TABLET Take 1 tablet by mouth in the morning. START taking Modified Medications as Prescribed No medications on file STOP taking these medications No medications on file Follow-up: Contact information for follow-up [facility] Specialty: Obstetrics & Gynecology [address], [address] [facility] [id number] Instructions: For follow up of the presenting symptoms. [facility] Specialty: Emergency Medicine [address] [address] Instructions: If symptoms worsen as documented in the discharge Electronically signed by: Caden Hidalgo DO 06/14/242118 [facility] 2024-05-30 03:14:09 Pt given printed and verbal discharge instructions regarding abd pain and Pt verbalized understanding of instructions, pt awake alert oriented, resp reg unlabored, skin w/d, color appropriate for race, moves all ext well,pt encouraged to follow up with pcp Advised to seek medical attention for new/prolonged/worsening of symptoms No adverse reaction to meds given in ER noted upon discharge PIV d'cd, dressing to site, catheter in tact. Awake, alert oriented, resp reg unlabored, skin w/d, pt leaving amb with steady gait, in no apparent distress, Gallo Montemayor RN [facility] 2024-05-30 03:01:08 [facility] ED Transfer of Care Note. Off-going Physician:Dr Zimmer Time of Transfer of Care: 3:01 AM Summary: Edwin Perry is a 23 year old female presenting with chief complaint of pelvic pain. Pending prior to disposition: Imaging Current interventions: Medications NaCl 0.9% (NS) bolus infusion 1,000 mL (0 mL IV Infusion Stopped 05/30/24 0143) acetaminophen (TYLENOL) tablet 650 mg (650 mg Oral Given 05/30/24 0004) Results: Labs Reviewed CBC WITH DIFF - Abnormal; Notable for the following components: Result Value RDW-SD 37.9 (*) All other components within normal limits BASIC METABOLIC PANEL (NA, K, CL, CO2, GLUCOSE, BUN, CREATININE, CA) - Abnormal; Notable for the following components: NA 134 (*) CO2 TOTAL 21 (*) CREATININE 0.47 (*) All other components within normal limits URINALYSIS - Abnormal; Notable for the following components: MUCOUS Slight (*) All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
[2025-06-23 15:17] LABS: Absolute Lymphocytes (CBC) 1.5 K/uL (0.7-4.9); Hematocrit 41.0 % (36.0-45.0); Hemoglobin 13.7 g/dL (12.0-15.0); MCH 28.5 pg (27.0-35.0); MCHC 33.5 g/dL (32.0-36.0); MCV 85.1 fL (80-100); MPV 8.5 fL (7.6-11.3); Nucleated RBC Absolute Count 0.0 (0-0); Nucleated Red Blood Cells % 0.0 % (0-0); RBC Red Blood Cell Count 4.81 M/uL (3.86-4.86); White Blood Count 7.20 thou/uL (4.3-10.9)
[2025-06-23 15:20] LABS: Urine Crystals Unidentified Few /HPF (None Seen); Urine Culture Reflex Order REFLEXED; Urine Microscopic Reflex YN ORDER UMIC; Urine WBC Clump Occasional /HPF (None Seen); Urine Yeast (Budding) Few /HPF (None Seen)
[2025-06-23] MEDS ORDERED: KETOROLAC 30 MG/ML INJ ONE (15:30)
[2025-06-23] MEDS ORDERED: NA CHLORIDE 0.9% 1,000 ML ONE (15:30)
[2025-06-23 15:36] LABS: ALT/SGPT 24.0 U/L (13-56); AST/SGOT 16.0 U/L (15-37); Albumin 4.0 g/dL (3.4-5.0); Albumin/Globulin Ratio 1.3 (1.1-1.8); Alkaline Phosphatase 103.0 U/L (45-117); Anion Gap 9.4 mEq/L (5.0-15.0); BUN Blood Urea Nitrogen 9.0 mg/dL (7-18); Globulin 3.2 g/dL (2.3-3.5); Glucose Level 87.0 mg/dL (74-106); Lipase 14.0 U/L (13-75); Potassium 3.4 mEq/L (3.5-5.1)
--- NOTE | 2025-06-23 16:25 | RAD REPORT ---
EXAMINATION: CT ABDOMEN AND PELVIS WITH CONTRAST CLINICAL INDICATION: Abdominal pain TECHNIQUE: CT abdomen and pelvis was performed, after the administration of 100 cc Isovue-300.. Sagit carrie and coronal reconstructions were obtained. One or more of the following dose reduction techniques were used: Automated exposure control, adjustment of the mA and kV according to patient si ze, and iterative reconstruction. Unless otherwise specified, incidental findings do not require dedicated imaging follow-up. [id number]. Oral contrast was not given which limits evaluation of bowel and appendix. COMPARISON: .None FINDINGS: Liver, spleen, pancreas, adrenals and kidneys appear unremarkable No evidence of diverticulitis. Normal appendix. 1.5 cm left ovarian cyst is benign. No follow-up imaging recommended. Small amount of free fluid. : IMPRESSION: 1.5 cm left ovarian cyst with small amount of free fluid
--- NOTE | 2025-06-23 16:26 | EDPHYS ---
Physician Documentation [facility] Name: Lori Perry Age: 25 yrs Sex: Female : 2000 Arrival Date: 06/23/2025 Time: 14:40 Bed 17 Private MD: ED Physician Jose Enrique Xie HPI: 06/23 14:45 This 25 yrs old Female presents to ER via Unassigned with complaints of kb Abdominal Pain, Back Pain. 14:45 Pt is a 25 year old female who presents for LLQ and left flank pain that started kb yesterday and is worse today. Denies dysuria, but states it is a little uncomfortable when she urinates. Denies frequency, hematuria. Denies n/v/d, fever. ROS: 14:46 Constitutional: As per HPI kb Exam: 14:46 Constitutional: This is a well developed, well nourished patient who is awake, alert, kb and in no acute distress. Head/Face: Normocephalic, atraumatic. ENT: Moist Mucous membranes Cardiovascular: Regular rate Respiratory: Respirations even and unlabored. No increased work of breathing. Talking in full sentences Skin: Warm, dry with normal turgor. Normal color. MS/ Extremity: Pulses equal, no cyanosis. Neurovascular intact. Full, normal range of motion. Neuro: Awake and alert, GCS 15, oriented to person, place, time, and situation. 14:46 Abdomen/GI: Inspection: abdomen appears normal, Bowel sounds: normal, Palpation: soft, in all quadrants, mild abdominal tenderness, in the left upper quadrant, 14:46 Back: CVA tenderness, that is mild, is noted on the left, Vital Signs: 14:52 BP 113 / 81; Pulse 86; Resp 16; Temp 98; Pulse Ox 98% ; Weight 44.45 kg; Height 4 ft. ll1 10 in. ; Pain 7/10; 14:52 Body Mass Index 20.48 (44.45 kg, 147.32 cm) ll1 14:52 Pain Scale: Adult ll1 MDM: 14:43 Medical Screening Exam initiated kb 14:47 Data reviewed: vital signs, nurses notes. kb 16:25 Differential diagnosis: non-specific abd pain, Pyelonephritis, Ureterolithiasis, kb urinary tract infection, ovarian cyst. Counseling: I had a detailed discussion with the patient and/or guardian regarding the historical points, exam findings, and any diagnostic results supporting the discharge/admit diagnosis, lab results, radiology results, the need for outpatient follow up, a family practitioner, an OB/Gyne specialist, to return to the emergency department if symptoms worsen or persist or if there are any questions or concerns that arise at home. 06/23 14:48 Order name: CBC with Diff; Complete Time: 15:21 kb 06/23 14:48 Order name: CMP; Complete Time: 15:46 kb 06/23 14:48 Order name: Lipase; Complete Time: 15:46 kb 06/23 14:48 Order name: Test, Urine; Complete Time: 15:21 kb 06/23 14:48 Order name: UA Rfx Camacho Cult if indicated; Complete Time: 15:31 kb 06/23 15:32 Order name: Urine Culture EDMS 06/23 15:32 Order name: CT Abd/Pelvis - IV Contrast Only; Complete Time: 16:26 kb 06/23 14:48 Order name: IV Saline Lock; Complete Time: 15:00 kb 06/23 14:48 Order name: Labs collected and sent; Complete Time: 15:00 kb Administered Medications: 15:34 Drug: TORadol - Ketorolac IVP 15 mg IVP once Route: IVP; Site: right antecubital; jb4 16:00 Follow up: Response: No adverse reaction; Marked relief of symptoms; Pain is decreased jb4 15:34 Drug: NS 0.9% IV 1000 ml IV at 1 bolus Per protocol; to be given as a bolus over 60 jb4 minutes Route: IV; Rate: 1 bolus; Site: right antecubital; 16:30 Follow up: Response: No adverse reaction; IV Status: Completed infusion; IV Intake: jb4 1000ml 16:40 Drug: Amoxicillin-Clavulanate PO 875 mg PO once Route: PO; jb4 16:58 Follow up: Response: No adverse reaction jb4 Disposition: 18:26 Co-signature as Attending Physician, Jose Enrique Xie MD I reviewed the patient's care rn provided by the Advanced Practice Provider and agree with the diagnosis and treatment plan. Disposition Summary: 06/23/25 16:25 Discharge Ordered Notes: Location: Home kb Condition: Stable kb Diagnosis - Other ovarian cysts kb - UTI/ Urinary tract infection, site not specified kb Followup: kb - With: Emergency Department - When: As needed - Reason: Worsening of condition Followup: kb - With: Private Physician - When: 2 - 3 days - Reason: Recheck today's complaints, Continuance of care, Re-evaluation by your physician Discharge Instructions: - Discharge Summary Sheet kb - Urinary Tract Infection, Adult, [id number] kb - Ovarian Cyst, [id number]-[id number] kb Forms: - Medication Reconciliation Form kb - Antibiotic Education kb - Prescription Opioid Use kb - Patient Portal Instructions kb - Leadership Thank You Letter kb - Family Work Release jb4 Prescriptions: - Augmentin 875-125 mg Oral Tablet - take 1 tablet ORAL route every 12 hours for 10 days; 20 tablet; Refills: 0, kb Product Selection Permitted Signatures: Dispatcher [employer] EDMS Elizabeth Patton, DEMETRA-Tito MCCRARY-Jose Enrique Cortés MD MD rn Bryson, James, RN RN jb4 Corrections: (The following items were deleted from the chart) 14:49 14:49 CBC+H.LAB.BRZ ordered. EDMS EDMS 14:49 14:49 COMPREHENSIVE METABOLIC PANEL+C.LAB.BRZ ordered. EDMS EDMS 14:49 14:49 LIPASE+C.LAB.BRZ ordered. EDMS EDMS 14:49 14:49 Test, Urine+UC.LAB.BRZ ordered. EDMS EDMS 14:49 14:49 UA Rfx Camacho Cult if indicated+U.LAB.BRZ ordered. EDMS EDMS 15:35 14:49 Stone Protocol+CT.RAD.BRZ ordered. EDMS EDMS
--- NOTE | 2025-06-23 16:26 | ER ---
Nurse's Notes [facility] Name: Lori Perry Age: 25 yrs Sex: Female : 2000 Arrival Date: 06/23/2025 Time: 14:40 Bed 17 Private MD: Diagnosis: Other ovarian cysts;UTI/ Urinary tract infection, site not specified Presentation: 06/23 14:52 Chief complaint: Patient states: LUQ abdominal pain with discomfort during urination. ll1 Coronavirus screen: Client denies travel out of the [place] in the last 14 days. At this time, the client does not indicate any symptoms associated with coronavirus-19. Ebola Screen: Patient denies travel to an Ebola-affected area in the 21 days before illness onset. Initial Sepsis Screen: Does the patient meet any 2 criteria? No. Patient's initial sepsis screen is negative. Does the patient have a suspected source of infection? No. Patient's initial sepsis screen is negative. Risk Assessment: Do you want to hurt yourself or someone else? Patient reports no desire to harm self or others. Onset of symptoms. 14:52 Method Of Arrival: [facility] 14:52 Acuity: [facility] 14:53 Onset of symptoms was June 22, 2025. 1 Triage Assessment: 14:54 General: Appears uncomfortable, Behavior is calm, cooperative, appropriate for age, ll1 Reports chills for fatigue for. Pain: Complains of pain in left upper quadrant Quality of pain is described as aching. GI: Reports upper abdominal pain. : Reports burning with urination. Screenin:01 [facility] ED Fall Risk Assessment (Adult) History of falling in the last 3 months, jb4 including since admission No falls in past 3 months (0 pts) Confusion or Disorientation No (0 pts) Intoxicated or Sedated No (0 pts) Impaired Gait No (0 pts) Mobility Assist Device Used No (0 pt) Altered Elimination No (0 pt) Score/Fall Risk Level 0 - 2 = Low Risk Oriented to surroundings, Maintained a safe environment. Abuse screen: Denies threats or abuse. Nutritional screening: No deficits noted. Tuberculosis screening: No symptoms or risk factors identified. Assessment: 16:19 Reassessment: Patient appears in no apparent distress at this time. Patient and/or jb4 family updated on plan of care and expected duration. Pain level reassessed. Patient is alert, oriented x 3, equal unlabored respirations, skin warm/dry/pink. 17:01 Reassessment: Patient appears in no apparent distress at this time. Patient and/or jb4 family updated on plan of care and expected duration. Pain level reassessed. Patient is alert, oriented x 3, equal unlabored respirations, skin warm/dry/pink. Vital Signs: 14:52 BP 113 / 81; Pulse 86; Resp 16; Temp 98; Pulse Ox 98% ; Weight 44.45 kg; Height 4 ft. ll1 10 in. ; Pain 7/10; 14:52 Body Mass Index 20.48 (44.45 kg, 147.32 cm) ll1 14:52 Pain Scale: Adult ll1 ED Course: 14:42 Patient arrived in ED. al6 14:43 Elizabeth Pat[facility]C [facility] kb 14:43 Jose Enrique Xie MD is Attending Physician. kb 14:53 Triage completed. ll1 14:54 Arm band placed on Patient placed in an exam room, on a stretcher. ll1 14:59 Radiology exam delayed due to test not completed at this time. ls3 15:00 Initial lab(s) drawn, by label remover, sent to lab. Inserted saline lock: 20 gauge in right ts3 antecubital area, using aseptic technique. Blood collected. Flushed with 10 mL NS. 15:01 Urine collected: clean catch specimen, sent to lab. ts3 16:02 CT Abd/Pelvis - IV Contrast Only In Process Unspecified. EDMS 16:18 Rocky Cancino, RN is Primary Nurse. jb4 17:01 Patient has correct armband on for positive identification. Bed in low position. Call jb4 light in reach. Side rails up X 1. Provided Education on: discharge instructions.. 17:01 No provider procedures requiring assistance completed. IV discontinued, intact, jb4 bleeding controlled, No redness/swelling at site. Pressure dressing applied. Administered Medications: 15:34 Drug: TORadol - Ketorolac IVP 15 mg IVP once Route: IVP; Site: right antecubital; jb4 16:00 Follow up: Response: No adverse reaction; Marked relief of symptoms; Pain is decreased jb4 15:34 Drug: NS 0.9% IV 1000 ml IV at 1 bolus Per protocol; to be given as a bolus over 60 jb4 minutes Route: IV; Rate: 1 bolus; Site: right antecubital; 16:30 Follow up: Response: No adverse reaction; IV Status: Completed infusion; IV Intake: jb4 1000ml 16:40 Drug: Amoxicillin-Clavulanate PO 875 mg PO once Route: PO; jb4 16:58 Follow up: Response: No adverse reaction jb4 Medication: 17:01 VIS not applicable for this client. jb4 Intake: 16:30 IV: 1000ml; Total: 1000ml. jb4 Outcome: 16:25 Discharge ordered by MD. rose 17:01 Discharged to home ambulatory, jb4 17:01 Condition: stable 17:01 Discharge instructions given to patient, Instructed on discharge instructions, follow up and referral plans. medication usage, Demonstrated understanding of instructions, follow-up care, medications, Prescriptions given X 1, 17:02 Patient left the ED. jb4 Signatures: Dispatcher [employer] EDMS Elizabeth Patton, HORSE RACE TIMER-C HORSE RACE TIMER-Ckb Rocky Cancino, RN RN jb4 Rebecca Bowles3 Shadia Argueta RN RN ll1 Becky Stack6 Eve Velazquez 3
[2025-06-23] MEDS ORDERED: AMOX/K CLAV 875 MG TAB ONE (16:37)
[2025-06-23 20:44] VITALS: BP 113/81; TEMP 98; O2SAT 98
== END 2025-06-23 17:02 | disposition home or self-care (01) ==
LOC: ER 14:40
DX: N39.0 Urinary tract infection, site not specified (principal); N83.292 Other ovarian cyst, left side
CPT/HCPCS: 87088; 85025; 81001; 87086; 36415; 81025; 83690; 80053; 74177; Q9967; J7030; 96361; 96374; 99284